=== PATIENT | female | born 1940 | race Caucasian/White ===

== ENCOUNTER 2016-06-15 09:20 | Emergency (ER) | payer MEDICARE, BC ==
[2016-06-15 10:04] LABS: Hematocrit 46.5 % (37.0-47.0); Mean Cell Volume 85.5 fl (78-100); Mean Corpuscular Hemoglobin 27.6 pg (27-31); Mean Corpuscular Hgb Conc 32.3 g/dl (32-36); Mean Platelet Volume 9.9 fl (6.0-9.5); Neutrophil # 7.9 K/mm3 (1.3-6.0); Neutrophil % 65.1 % (42-75.0); Platelet Count 379 K/mm3 (150-450); Red Blood Count 5.44 M/mm3 (4.2-5.4); Red Cell Distribution Width 14.6 % (11.5-14.0); White Blood Count 12.2 K/mm3 (4.0-10.5)
[2016-06-15 10:08] LABS: Urine Bilirubin Negative (NEGATIVE); Urine Blood Negative /ul (NEGATIVE); Urine Ketone Negative (NEGATIVE); Urine Nitrite Negative (NEGATIVE); Urine Protein Negative (NEGATIVE); Urine Specific Gravity >=1.030 SP.GR. (1.005-1.010); Urine Urobilinogen Normal (NORMAL)
[2016-06-15 10:16] LABS: Urine Appearance Clear; Urine Bacteria None Seen; Urine Color Yellow; Urine RBC None Seen /hpf (0-5); Urine WBC 0-5 /hpf (0-5)
[2016-06-15 10:19] LABS: Albumin * 3.4 gm/dl (3.4-5.0); Anion Gap 13.9 mmol/L (6.8-13.8); BUN/Creatinine Ratio 18.1 (9.0-21.6); Bilirubin, Total 0.6 mg/dL (0.0-1.1); Ca. Corrected For Albumin 9.4 mg/dL (8.4-10.2); Calcium * 9.2 mg/dL (7.9-10.9); Carbon Dioxide 25.5 mmol/L (24-32.6); Potassium 4.4 mmol/L (3.4-4.6); Total Protein 7.4 gm/dL (6.2-8.2)
[2016-06-15] MEDS ORDERED: DIATRIZOATE MEGLU/DIATRIZO SOD 30 ML BTL PO ONE (10:24)
[2016-06-15] MEDS ORDERED: DIATRIZOATE MEGLU/DIATRIZO SOD 30 ML BTL ONE (10:32)
[2016-06-15 13:02] VITALS: BP 142/87
--- NOTE | 2016-06-15 13:47 | ERNOTE ---
Abdominal HPI - Narrative Date of Service: 06/15/16 - General Chief Complaint: Abdominal Pain Time Seen by Provider: 06/15/16 09:44 Source: patient Exam Limitations: no limitations - Immun/Allergies/Home Medications Immunizatons: IMMUNIZATION HX Immunizations Up to Date Yes History of Influenza Vaccine Yes Hx Pneumococcal Vaccination Yes Allergies/Adverse Reactions: Allergies Penicillins Allergy (Severe, Verified 06/15/16 09:42) Anaphylaxis levofloxacin [From Levaquin] Allergy (Mild, Verified 06/15/16 09:42) Hives lidocaine Adverse Reaction (Intermediate, Verified 06/15/16 09:42) ELEVATED HEART RATE atorvastatin calcium [From Lipitor] Adverse Reaction (Mild, Verified 06/15/16 09 :42) LEG PAIN clarithromycin [From Biaxin] Adverse Reaction (Mild, Verified 06/15/16 09:42) UPSET STOMACH Sulfa (Sulfonamide Antibiotics) [Sulfa(Sulfonamide Antibiotics)] Adverse Reaction (Mild, Verified 06/15/16 09:42) Nausea Home Medications: HOME MEDICATIONS LORazepam [Ativan] 0.5 - 1 mg PO HS PRN 05/29/12 [Last Taken 10/22/14] Aspirin 325 tab PO DAILY 10/22/12 [Last Taken 10/22/14] Metoprolol Tartrate [Lopressor] 25 mg PO HS 10/22/12 [Last Taken 10/21/14] Metoprolol Tartrate [Lopressor] 50 mg PO QAM 10/22/12 [Last Taken 05/26/15 06:00 ] Lovastatin [Altoprev] 20 mg PO HS 02/10/15 [Last Taken Unknown] Omeprazole [Prilosec] 20 mg PO DAILY 02/14/15 [Last Taken Unknown] Albuterol Sulfate 2.5 mg IH Q6H PRN 04/23/15 [Last Taken Unknown] Albuterol Sulfate [Ventolin Hfa] 1 puff IH Q4H 04/23/15 [Last Taken Unknown] Fexofenadine/Pseudoephedrine [Katy-D 24 Hour Tablet] 1 each PO DAILY #30 tab.er.24h 11/22/15 [Last Taken Unknown] Fluticasone Propionate [Flovent Hfa] 2 puff IH BID #1 inhaler 11/22/15 [Last Taken Unknown] Doxycycline Hyclate [Morgidox] 100 mg PO BID #20 capsule 06/15/16 [Last Taken Unknown] - History of Present Illness Narrative: Patient presents for abdominal pain. This has been fresent for approx 2 weeks. Saw PCP and was started on ABx but pain continues. No fever or vomiting. Mid and left mid abdomen. Pain waxes and wanes but will come back daily. No vomiting. No dysuria. Nothing really seems to make it better or worse. Saw PCP and labs/ABx given. No CP or SOB. No abrupt worsening of the pain. Timing: other - fluctuating intensity Quality: moderate, aching Activities at Onset: none Modifying Factors - (Improves): Present: other - none Modifying Factors - (Worsens): Present: other - none Associated Symptoms: Absent: chest pain, diarrhea-gross blood, diarrhea-mucous, fever/chills, vomiting, shortness of breath Prior Abdominal Problems: Present: other - has Hx of diverticulttis Prior Treatment: Present: recently seen Review of Systems - Review of Systems Constitutional: Absent: fever Respiratory: Absent: shortness of breath Cardiology: Absent: chest pain Gastrointestinal/Abdominal: Present: See HPI Genitourinary: Absent: dysuria Musculoskeletal: Absent: back pain Skin: Absent: rash - Patient's Past Medical History Patient History - Medical: Anxiety, Cataracts, Depression, GERD, UTI'S, Other Patient History - Cardiac/Respiratory: Hypertension, Hyperlipidemia Patient History - Cancer: No Hx of Cancer Patient History - Surgical Procedures: Appendectomy, Cataracts, Cholecystectomy , Colonoscopy, EGD Patient History - Other: None - Family History Mother Family History - Medical: Family History - Cardiac/Respiratory: Coronary Heart Disease, Hypertension, Hyperlipidemia Father Family History - Medical: , Alzheimer's Disease Family History - Cardiac/Respiratory: No pertinent hx - Social History Living Situations: home Abuse History: No History of abuse Psych History: Hx of Anxiety, Hx of Depression, Current tx/ever been on anti- depressants or anti-anxiety meds Alcohol Use: none Drug Use: none - Immunizations Immunizations Up to Date: Yes Hx Pneumococcal Vaccination: Yes History of Influenza Vaccine: Yes Physical Exam - Physical Exam General Appearance: Present: alert, no apparent distress, other - Non-toxic, no distress. Sitting in the chair. Eye Exam: Normal inspection: bilateral, PERRL: bilateral Ears, Nose, Throat: Present: normal ENT inspection Neck: Present: normal inspection Respiratory: Present: no respiratory distress, normal breath sounds, no accessory muscle use, lungs clear Cardiovascular/Chest: Present: regular rate, rhythm Gastrointestinal/Abdominal: Present: normal bowel sounds, nondistended, soft, no organomegaly, other - Mild tenderness left mid abdomen. No guarding or rebound. No peritoneal signs.. Non-surgical exam. 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 - Vital Signs Patient's Vital Signs:: I have reviewed the patient's vital signs. Vital Signs: Vital Signs 06/15/16 06/15/16 06/15/16 09:36 10:47 11:45 Temperature 36.4 C L Pulse Rate 73 74 86 Respiratory 12 12 12 Rate Blood Pressure 130/63 128/84 132/80 O2 Sat by Pulse 92 96 94 Oximetry 06/15/16 12:50 Temperature Pulse Rate 87 Respiratory 12 Rate Blood Pressure 142/87 O2 Sat by Pulse 97 Oximetry - CT/Ultrasound CT/Ultrasound Narrative: Diverticulitis. I reviewed official CT report - Progress/Reassessment Chief Complaint: Abdominal Pain Progress Note-Subjective: 06/15/16 13:43 Patient with multiple allergies and on ABx. Will add doxycycline as she is not allergic. No indication at this point for admission. By CT uncomplicated diverticulitis. No abscess. Well hydrated, non-surgical exam. She feels like going home. I discussed warning signs and reasons to return as well as the need for close f/u. Departure - Departure Clinical Impression: Diverticulitis Disposition: Home self-care Condition: Stable Instructions: Diverticulitis, [id number] Additional Instructions: Follow-up with your primary doctor within 3 days for a re-check. Doxycycline. [place] diet next 3 days. Return for fever, vomiting, increased pain or if your condition worsens or changes in any way. Referrals: Chana Hunt MD [Primary Care Provider] - Prescriptions: Doxycycline Hyclate [Morgidox] 100 mg PO BID #20 capsule
== END 2016-06-15 13:53 | disposition home or self-care (01) ==
LOC: ER 09:20
DX: K57.92 Diverticulitis of intestine, part unspecified, without perforation or abscess without bleeding (principal); Z87.440 Personal history of urinary (tract) infections; K21.9 Gastro-esophageal reflux disease without esophagitis; I10 Essential (primary) hypertension; E78.5 Hyperlipidemia, unspecified; F41.9 Anxiety disorder, unspecified

== ENCOUNTER 2016-08-07 09:53 | Observation (INO) | payer MEDICARE, BC ==
[2016-08-07] MEDS ORDERED: NITROGLYCERIN 0.4 MG/TAB BTL SL PRN ×2 (09:59→14:52)
--- NOTE | 2016-08-07 10:10 | ERNOTE ---
Chest Pain/Cardiac HPI Date of Service: 08/07/16 Time Seen by Provider: 08/07/16 09:55 Source: patient Exam Limitations: no limitations Immunizations: IMMUNIZATION HX Immunizations Up to Date Yes History of Influenza Vaccine Yes Hx Pneumococcal Vaccination Yes Allergies/Adverse Reactions: Allergies Penicillins Allergy (Severe, Verified 06/15/16 09:42) Anaphylaxis levofloxacin [From Levaquin] Allergy (Mild, Verified 06/15/16 09:42) Hives lidocaine Adverse Reaction (Intermediate, Verified 06/15/16 09:42) ELEVATED HEART RATE atorvastatin calcium [From Lipitor] Adverse Reaction (Mild, Verified 06/15/16 09 :42) LEG PAIN clarithromycin [From Biaxin] Adverse Reaction (Mild, Verified 06/15/16 09:42) UPSET STOMACH Sulfa (Sulfonamide Antibiotics) [Sulfa(Sulfonamide Antibiotics)] Adverse Reaction (Mild, Verified 06/15/16 09:42) Nausea Home Medications: HOME MEDICATIONS LORazepam [Ativan] 0.5 - 1 mg PO HS PRN 05/29/12 [Last Taken 10/22/14] Aspirin 325 tab PO DAILY 10/22/12 [Last Taken 10/22/14] Metoprolol Tartrate [Lopressor] 25 mg PO HS 10/22/12 [Last Taken 10/21/14] Metoprolol Tartrate [Lopressor] 50 mg PO QAM 10/22/12 [Last Taken 05/26/15 06:00 ] Lovastatin [Altoprev] 20 mg PO HS 02/10/15 [Last Taken Unknown] Omeprazole [Prilosec] 20 mg PO DAILY 02/14/15 [Last Taken Unknown] Albuterol Sulfate 2.5 mg IH Q6H PRN 04/23/15 [Last Taken Unknown] Albuterol Sulfate [Ventolin Hfa] 1 puff IH Q4H 04/23/15 [Last Taken Unknown] Fluticasone Propionate [Flovent Hfa] 2 puff IH BID #1 inhaler 11/22/15 [Last Taken Unknown] Narrative: Pt. comes in with c/o mid sternal chest pain that radiates to both of her shoulders since 7pm last night. Pt. is unable to put a number on her pain as she states it is more of a pressure than a pain and nothing improves or exacerbates the pain. Pt. states that she has some mild SOB with this and has had a recent bronchitis. Pt. also has a hx of a stent to an unknown coronary artery in 1998 and has HTN. Pt. denies any fevers, NVD, lightheadedness, or palpitations. Pt. has a hx of R leg pedal edema which pt. denies any change in. Review of Systems - Review of Systems Constitutional: Present: no symptoms reported. Absent: fever, chills, weakness , fatigue, malaise EYE: Present: no symptoms reported ENT: Absent: ear discharge, nose pain, nose congestion, nasal drainage, sore throat Respiratory: Present: shortness of breath, cough. Absent: orthopnea, wheezing, stridor Cardiology: Present: chest pain, edema. Absent: palpitations Gastrointestinal/Abdominal: Present: no symptoms reported. Absent: vomiting, diarrhea, abdominal pain Genitourinary: Present: no symptoms reported Musculoskeletal: Present: no symptoms reported. Absent: back pain, joint pain Skin: Present: no symptoms reported Neurological: Present: no symptoms reported. Absent: headache, dizziness/light- headedness, numbness, tingling Endocrine: Present: no symptoms reported Hematologic/Lymphatic: Present: no symptoms reported Psych: Present: no symptoms reported All Other Systems: All systems neg except as marked - Patient's Past Medical History Patient History - Medical: Anxiety, Cataracts, Depression, GERD, UTI'S Patient History - Cardiac/Respiratory: Hypertension, Hyperlipidemia Patient History - Cancer: No Hx of Cancer Patient History - Surgical Procedures: Appendectomy, Cataracts, Cholecystectomy , Colonoscopy, EGD Patient History - Other: None - Family History Mother Family History - Medical: Family History - Cardiac/Respiratory: Coronary Heart Disease, Hypertension, Hyperlipidemia Father Family History - Medical: , Alzheimer's Disease Family History - Cardiac/Respiratory: No pertinent hx - Social History Living Situations: home Abuse History: No History of abuse Psych History: Hx of Anxiety, Hx of Depression, Current tx/ever been on anti- depressants or anti-anxiety meds Alcohol Use: none Drug Use: none - Immunizations Immunizations Up to Date: Yes Hx Pneumococcal Vaccination: Yes History of Influenza Vaccine: Yes Physical Exam - Physical Exam General Appearance: Present: wd/wn, alert, no apparent distress Eye Exam: Normal inspection: bilateral, PERRL: bilateral, EOMI: bilateral Ears, Nose, Throat: Present: normal ENT inspection, normal pharynx Neck: Present: normal inspection, nontender. Absent: lymphadenopathy (R), lymphadenopathy (L) Respiratory: Present: no respiratory distress, normal breath sounds, no accessory muscle use, chest nontender, lungs clear Cardiovascular/Chest: Present: regular rate, rhythm, no murmur, normal peripheral pulses Gastrointestinal/Abdominal: Present: normal bowel sounds, nontender, nondistended, soft, no organomegaly Back Exam: Present: normal inspection, normal range of motion, no CVA tenderness , no vertebral tenderness Extremity Exam: Present: normal inspection, non-tender, normal range of motion, no edema Neurological Exam: Present: alert, oriented, normal mood/affect, no motor/ sensory deficits, 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 Absent: pallor, skin rash ED Progress - Date and Time Seen: Date and Time: 08/07/16 13:[address] Joselito Call and he accepts admit for observation to rule out CT - Results and Orders Patient's Lab Results:: I have reviewed the patient's lab results. - Vital Signs Patient's Vital Signs:: I have reviewed the patient's vital signs. - EKG EKG: NSR, unchanged from - previous, other - inferior changes EKG read: Reviewed by me EKG Comments: interpreted by Dr shannon no acute changes - X-Ray X-Ray #1 X-Ray: chest Interpretation: Interp. by me X-ray Comments: elevated R hemidiaphragm, LLL atelactasis and consolidation at the costalphrenic angle, - CT/Ultrasound CT/Ultrasound Narrative: CT chest with multiple nodules and dependent atelactasis. Departure - Departure Clinical Impression: Chest pain Qualifiers: Chest pain type: unspecified Qualified Code(s): R07.9 - Chest pain, unspecified Acute bronchitis Qualifiers: Bronchitis organism: unspecified organism Qualified Code(s): J20.9 - Acute bronchitis, unspecified Disposition: [facility] Condition: Fair Referrals: Chana Hunt MD [Primary Care Provider] -
[2016-08-07 10:13] LABS: Hematocrit 44.2 % (37.0-47.0); Hemoglobin 14.4 gm/dL (12.5-16.0); Mean Cell Volume 84.5 fl (78-100); Mean Corpuscular Hemoglobin 27.5 pg (27-31); Mean Corpuscular Hgb Conc 32.6 g/dl (32-36); Mean Platelet Volume 9.7 fl (6.0-9.5); Neutrophil # 5.5 K/mm3 (1.3-6.0); Neutrophil % 59.1 % (42-75.0); Platelet Count 322 K/mm3 (150-450); Red Blood Count 5.23 M/mm3 (4.2-5.4); White Blood Count 9.4 K/mm3 (4.0-10.5)
--- OUTSIDE RECORDS SUMMARY | 2016-08-07 10:19 | XMS REPORT | Continuity of Care Document ---
:1940 Author Organization [facility] ([facility]) Address [place] [address] Phone [phone] Care Team Providers Name Role Phone Chana Hunt Primary Care Provider [phone] Source Comments This disclosure is being made pursuant to the Care Everywhere program, applicable federal and state laws, and may not contain all informaitonavailable regarding this patient.[facility] ([facility]) Active Allergies and Adverse Reactions Allergen Noted Date Severity Reactions Comments Atorvastatin 09/13/2011 OTHER Leg pain Clarithromycin 09/13/2011 Stomach Pain Levofloxacin 09/13/2011 Urticaria (Hives) Lidocaine 09/13/2011 Tachycardia Penicillin G 09/13/2011 Anaphylaxis Sulfa (Sulfonamide Antibiotics) 09/13/2011 Nausea & Vomiting Current Medications Prescription Sig. Disp. Refills Start Date End Date Status aspirin 325 mg tablet Take 325 mg by mouth Active daily. metoPROLol (LOPRESSOR) Take 50 mg by mouth 2 Active 50 mg tablet times daily. Take 50mg Q AM and 25mg Q PM. LORazepam 0.5 mg tablet Take 0.5 mg by mouth Active every 6 hours as needed. Omeprazole 20 mg TbEC Take 20 mg by mouth Active daily. simvastatin 20 mg Take 20 mg by mouth Active tablet every evening. estrogens, conjugated insert 0.5 g 30 g 11 12/09/2011 Active (PREMARIN) 0.625 vaginally every week. mg/gram vaginal cream Indications: ATROPHIC VAGINITIS ASSOCIATED WITH MENOPAUSE Active Problems Problem Noted Date Recurrent UTI 09/17/2011 HTN (hypertension) 09/17/2011 CAD (coronary artery disease) 09/17/2011 Overview: Hx of 1 vessel stent Social History Tobacco Use Types Packs/Day Years Used Date Never Smoker Smokeless Tobacco: Never Used Alcohol Use Drinks/Week oz/Week Comments No Last Filed Vital Signs Vital Sign Reading Time Taken Blood Pressure 138/78 03/06/2013 10:34 AM CDT Pulse 65 03/06/2013 10:34 AM CDT Temperature 36.6 C (97.9 F) 03/06/2013 10:34 AM CDT Respiratory Rate 18 02/09/2012 2:46 PM CDT Height 1.626 m (5' 4.02") 03/06/2013 10:34 AM CDT Weight 83.099 kg (183 lb 3.2 oz) 03/06/2013 10:34 AM CDT Body Mass Index 31.43 03/06/2013 10:34 AM CDT Oxygen Saturation 94% 02/09/2012 2:46 PM CDT Plan of Care Health Maintenance Due Date Last Done Comments Hepatitis B Vaccine (1 of 3 - Primary Series) 1940 Tdap Vaccine 1952 Lipid Disorder Screening 1959 Td Vaccine 1959 Mammogram 1981 Colonoscopy 1991 Zoster Vaccine 2001 Osteoporosis Screening (DXA Bone Density) 2006 Pneumococcal Vaccine (1 of 2 - PCV13) 2006 Influenza Vaccine: Seasonal (#1) 12/08/2015 Results from Last 3 Months Not on file
[2016-08-07 10:34] LABS: ALT 29 U/L (19-67); AST 29 U/L (0-48); Albumin * 3.3 gm/dl (3.4-5.0); Alkaline Phosphatase * 46 U/L (50-170); Anion Gap 12.3 mmol/L (6.8-13.8); BUN/Creatinine Ratio 19.2 (9.0-21.6); Bilirubin, Total 0.7 mg/dL (0.0-1.1); Blood Urea Nitrogen 15 mg/dL (3-23); Ca. Corrected For Albumin 9.2 mg/dL (8.4-10.2); Carbon Dioxide 28.7 mmol/L (24-32.6); Chloride 105 mmol/L (97-106); Glucose * 94 mg/dL (70-110); Sodium 142 mmol/L (132-142); Troponin I Less than 0.017 ng/ml (0.00-0.10)
[2016-08-07 10:37] LABS: Prothrombin Time (Patient) 10.5 Seconds (9.4-11.4)
[2016-08-07 10:39] LABS: INR 1.01 INR (0.90-1.10); Partial Thrombolplastin Time 25.4 Seconds (24-32)
[2016-08-07] MEDS ORDERED: LORazepam 1 MG TABLET PO PRN (14:42)
[2016-08-07] MEDS ORDERED: ALBUTEROL SULFATE 2.5 MG/3 ML VIAL.NEB IH PRN (14:42)
--- NOTE | 2016-08-07 15:01 | HP ---
Chief Complaint - Chief Complaint Date of Service: 08/07/16 Time of Service: 14:44 Chief Complaint: chest pressure History of Present Illness: 76 yo WF, pt. of Dr. Hunt's, with PMH CAD (s/p stent 1998), hyperlipidemia, HTN and GERD has been feeling more fatigued over the last week and last night began having a substernal chest pressure with radiation into neck and both shoulders. She didn't move around a lot, but didn't notice any increase of sx with movement. She thought it might be her stomach so took an antacid without relief. Finally took an old nitro and lorazepam which gave her some relief and she went to sleep, but woke again this am with the CP recurring. She denied N/V /diaphoresis with it, but did have some fatigue and SOB. She presented to the ER where nitro was given, which diminished but didn't relieve her sx. EKG and first set of cardiac enzymes were negative, but given her risk factors, felt it best to at least observe her overnight and rule out possible AMI/ACS. She still complains of some discomfort at the time I saw her, though she doesn' t look to be in any terrible distress or anxious appearing. She does have some KARRI and sternal - costochondral pain on palpation, but she said both of these were not the same as the discomfort she is having. - Patient's Past Medical History Patient History - Medical: Anxiety, Cataracts, Depression, GERD, UTI'S Patient History - Cardiac/Respiratory: Coronary Heart Disease - s/p stent placement in 1998, single vessel per her, Hypertension, Hyperlipidemia Patient History - Cancer: No Hx of Cancer Patient History - Surgical Procedures: Appendectomy, Cataracts, Cholecystectomy , Colonoscopy, Cardiac stent, EGD Patient History - Other: None - Family History Mother Family History - Medical: Family History - Cardiac/Respiratory: Coronary Heart Disease, Hypertension, Hyperlipidemia Father Family History - Medical: , Alzheimer's Disease Family History - Cardiac/Respiratory: No pertinent hx - Social History Living Situations: home Abuse History: No History of abuse Psych History: Hx of Anxiety, Hx of Depression, Current tx/ever been on anti- depressants or anti-anxiety meds Smoking Status: Never smoker Do you dip or chew tobacco: No Alcohol Use: none Drug Use: none - Immunizations Immunizations Up to Date: Yes Hx Pneumococcal Vaccination: Yes History of Influenza Vaccine: Yes Review Of Systems (GEN) - Review of Systems Generalized/Overall Review: Present: Weakness, Fatigue. Absent: Chills, Fever EENTM: Present: No Symptoms Reported Respiratory: Present: Shortness of Breath. Absent: Cough, Wheezing Cardiac: Present: Chest Pain. Absent: Palpitations Abdominal: Present: Nausea. Absent: Vomiting, Abdominal Pain, Constipation, Diarrhea Genitourinary: Present: No Symptoms Reported Musculoskeletal: Present: No Symptoms Reported Neurological: Present: No Symptoms Reported Skin: Present: No Symptoms Reported Endocrine: Present: No Symptoms Reported Allergies/Adverse Reactions: Allergies Allergy/AdvReac Type Severity Reaction Status Date / Time Penicillins Allergy Severe Anaphylaxis Verified 06/15/16 09:42 levofloxacin [From Levaquin] Allergy Mild Hives Verified 06/15/16 09:42 lidocaine AdvReac Intermediate ELEVATED Verified 06/15/16 09:42 HEART RATE atorvastatin calcium AdvReac Mild LEG PAIN Verified 06/15/16 09:42 [From Lipitor] clarithromycin [From Biaxin] AdvReac Mild UPSET Verified 06/15/16 09:42 STOMACH Sulfa (Sulfonamide AdvReac Mild Nausea Verified 06/15/16 09:42 Antibiotics) [Sulfa(Sulfonamide Antibiotics)] Home Medications: HOME MEDICATIONS LORazepam [Ativan] 0.5 - 1 mg PO HS PRN 05/29/12 [Last Taken 10/22/14] Aspirin 325 tab PO DAILY 10/22/12 [Last Taken 10/22/14] Metoprolol Tartrate [Lopressor] 25 mg PO HS 10/22/12 [Last Taken 10/21/14] Metoprolol Tartrate [Lopressor] 50 mg PO QAM 10/22/12 [Last Taken 05/26/15 06:00 ] Lovastatin [Altoprev] 20 mg PO HS 02/10/15 [Last Taken Unknown] Omeprazole [Prilosec] 20 mg PO DAILY 02/14/15 [Last Taken Unknown] Albuterol Sulfate 2.5 mg IH Q6H PRN 04/23/15 [Last Taken Unknown] Albuterol Sulfate [Ventolin Hfa] 1 puff IH Q4H 04/23/15 [Last Taken Unknown] Fluticasone Propionate [Flovent Hfa] 2 puff IH BID #1 inhaler 11/22/15 [Last Taken Unknown] Exam - Exam Vital Signs: Vital Signs - Last Taken Temp 36.9 C 08/07/16 09:56 Pulse 77 08/07/16 14:10 Resp 15 08/07/16 14:09 BP 144/68 08/07/16 14:09 Pulse Ox 95 08/07/16 14:09 Constitutional: Present: Alert, Oriented x3, Cooperative, Mild distress ENT Exam: Present: hearing grossly normal Eye Exam: bilateral eye: normal inspection, PERRL, EOMI Neck: Present: supple Back Exam: Present: normal inspection Breasts: Present: Exam deferred Respiratory: Present: lungs clear, normal breath sounds, no respiratory distress , no accessory muscle use, other - sternal border tender to palpation. Cardiovascular/Chest: Present: regular rate, rhythm, no murmur Abdomen: Present: Normal bowel sounds, soft, nondistended, no rebound tenderness , no hepatospenomegaly, tender - mild KARRI pain with deep palpation. Absent: guarding, rigidity /Rectal: Present: Exam deferred Extremity: Present: no calf tenderness. Absent: lower extremity edema Skin Exam: Present: normal color Neurologic: Present: normal mood/affect, oriented x 3 Appearance: Present: appropriate appearance, appropriate insight, neat, no memory impairment Eye contact: Present: cooperative, good eye contact, normal speech Thoughts: Present: normal thought pattern, no apparent hallucination Diagnostic Studies: Laboratory Results WBC 9.4 K/mm3 (4.0-10.5) 08/07/16 10:05 RBC 5.23 M/mm3 (4.2-5.4) 08/07/16 10:05 Hgb 14.4 gm/dL (12.5-16.0) 08/07/16 10:05 Hct 44.2 % (37.0-47.0) 08/07/16 10:05 MCV 84.5 fl (78-100) 08/07/16 10:05 MCH 27.5 pg (27-31) 08/07/16 10:05 MCHC 32.6 g/dl (32-36) 08/07/16 10:05 RDW 14.0 % (11.5-14.0) 08/07/16 10:05 Plt Count 322 K/mm3 (150-450) 08/07/16 10:05 MPV 9.7 fl (6.0-9.5) H 08/07/16 10:05 Immature Gran % (Auto) 0.50 % (0.001-0.429) H 08/07/16 10:05 Immature Gran # (Auto) 0.05 K/mm3 (0.000-0.0310) H 08/07/16 10:05 Neutrophils % 59.1 % (42-75.0) 08/07/16 10:05 Lymphocytes % 26.5 % (20-51) 08/07/16 10:05 Monocytes % 8.0 % (0.0-9) 08/07/16 10:05 Eosinophils % 4.6 % (0.0-3.0) H 08/07/16 10:05 Basophils % 1.3 % (0.0-1.0) H 08/07/16 10:05 Nucleated RBC % 0.0 k/mm3 (0-1) 08/07/16 10:05 Neutrophils # 5.5 K/mm3 (1.3-6.0) 08/07/16 10:05 Lymphocytes # 2.5 k/mm3 (1.5-3.5) 08/07/16 10:05 Monocytes # 0.8 k/mm3 (0.0-1.0) 08/07/16 10:05 Eosinophils # 0.4 k/mm3 (0.0-0.7) 08/07/16 10:05 Absolute Basophils 0.1 k/mm3 (0.0-0.1) 08/07/16 10:05 PT 10.5 Seconds (9.4-11.4) 08/07/16 10:05 INR (Anticoag Therapy) 1.01 INR (0.90-1.10) 08/07/16 10:05 PTT (Herbert) 25.4 Seconds (24-32) 08/07/16 10:05 D-Dimer 1.32 mg/L (0.19-0.49) H 08/07/16 10:05 Sodium 142 mmol/L (132-142) 08/07/16 10:05 Plasma Sodium 142 mmol/L (130-142) 08/07/16 10:05 Potassium 4.0 mmol/L (3.4-4.6) 08/07/16 10:05 Chloride 105 mmol/L (97-106) 08/07/16 10:05 Carbon Dioxide 28.7 mmol/L (24-32.6) 08/07/16 10:05 Anion Gap 12.3 mmol/L (6.8-13.8) 08/07/16 10:05 BUN 15 mg/dL (3-23) 08/07/16 10:05 Creatinine 0.78 mg/dL (0.4-1.4) 08/07/16 10:05 Est GFR (Non-Af Amer) 77 mL/min (60-130) 08/07/16 10:05 BUN/Creatinine Ratio 19.2 (9.0-21.6) 08/07/16 10:05 Random Glucose 94 mg/dL (70-110) 08/07/16 10:05 Calcium 9.0 mg/dL (7.9-10.9) 08/07/16 10:05 Calcium Adj for Albumin 9.2 mg/dL (8.4-10.2) 08/07/16 10:05 Total Bilirubin 0.7 mg/dL (0.0-1.1) 08/07/16 10:05 AST 29 U/L (0-48) 08/07/16 10:05 ALT 29 U/L (19-67) 08/07/16 10:05 Alkaline Phosphatase 46 U/L (50-170) L 08/07/16 10:05 Troponin I Less than 0.017 ng/ml (0.00-0.10) 08/07/16 10:05 Total Protein 7.0 gm/dL (6.2-8.2) 08/07/16 10:05 Albumin 3.3 gm/dl (3.4-5.0) L 08/07/16 10:05 Assessment/Plan - Assessment/Plan (1) HTN (hypertension) Assessment: BP's are elevated, which is somewhat concerning with her CP for possible CAD/ angina. consider low dose lisinopril 2.5mg - 5mg if it remains elevated. Will follow for now. continue her metoprolol for now Problem: Acute (2) GERD (gastroesophageal reflux disease) Assessment: continue omeprazole unchanged. consider tums, gi cocktail if sx. Problem: Acute (3) Hyperlipemia Assessment: continue chl med unchanged for now Problem: Acute (4) Asthma Assessment: continue meds unchanged as appears stable at this time and I don't believe is related to her sx. Problem: Acute (5) Discharge planning issues Assessment: will monitor sx. if labs and tests are negative will discharge in am, with PCP workup for CP to include possible cardiology referral or outpt stress test. Problem: Acute (6) Chest pain Assessment: has several risk factors for this being cardiac in nature. If sx persist, consider checking amylas and lipase to rule out pancreatic source. PE was already ruled out and I assume that this gives a good look at thoracic aorta as well for possible aneurysm causing sx. Problem: Acute Qualifiers: Chest pain type: unspecified Qualified Code(s): R07.9 - Chest pain, unspecified
[2016-08-07 15:30] LABS: Amylase * 59 U/L (25-115); Lipase 361 U/L (73-393)
[2016-08-07] MEDS: ALBUTEROL SULFATE 2.5 MG/3 ML VIAL.NEB IH SCH ×3 (16:26→23:08)
[2016-08-07] MEDS: BUDESONIDE 0.5 MG/2 ML VIAL.NEB IH SCH (18:11)
[2016-08-07] MEDS ORDERED: SIMVASTATIN 10 MG TABLET PO SCH (21:00)
[2016-08-07] MEDS ORDERED: METOPROLOL TARTRATE 25 MG TABLET PO SCH (21:00)
[2016-08-07] MEDS ORDERED: CALCIUM CARBONATE 500 MG TAB.CHEW PO PRN (21:06)
[2016-08-08] MEDS: ALBUTEROL SULFATE 2.5 MG/3 ML VIAL.NEB IH SCH ×2 (02:42→06:07)
[2016-08-08] MEDS: BUDESONIDE 0.5 MG/2 ML VIAL.NEB IH SCH (06:09)
[2016-08-08] MEDS ORDERED: PANTOPRAZOLE SODIUM 20 MG TABLET.DR PO SCH (07:00)
[2016-08-08 07:08] VITALS: BP 120/55
--- NOTE | 2016-08-08 08:48 | DS ---
(1) HTN (hypertension) Problem: Acute (2) GERD (gastroesophageal reflux disease) Problem: Acute (3) Hyperlipemia Problem: Acute (4) Asthma Problem: Acute (5) Discharge planning issues Problem: Acute (6) Chest pain Problem: Acute Qualifiers: Chest pain type: unspecified Qualified Code(s): R07.9 - Chest pain, unspecified Description of Stay: Pt. had serial enzymes done which were negative for AMI or ACS. No EKG changes of concern. Pt. still had some chest pressure, especially after eating and developed a slight cough, though her lung exam remained unremarkable. Still, believe her CP may be more related to GERD or asthma/bronchitis so will do a zpak and prednisone taper at time of discharge (she states she has taken this and it works well for her), prn tums for the stomach. No other med changes done. She was given an Rx for nitroglycerin as her's was old. Her BP's initially were high but were in the 120's at time of D/C so no med changes were made, though consideration for adding low dose lisinopril was considered. Procedures Performed: none Discharge Disposition: Home self care Disposition: Home self-care Condition: Good Discharge Activity: Activity as tolerated Discharge Diet: General/regular food Referrals: Chana Hunt MD [Primary Care Provider] - One Week Prescriptions (Any new or edited meds): Azithromycin 250 mg PO DAILY #6 tablet Nitroglycerin [Nitrostat] 0.4 mg SL Q5MIN PRN #20 btl PRN Reason: Chest Pain predniSONE [Prednisone] 10 mg PO DAILY #21 tab.ds.pk Complete Home Medications List: Complete Home Medication List: LORazepam [Ativan] 0.5 - 1 mg PO HS PRN 05/29/12 Aspirin 325 tab PO DAILY 10/22/12 Metoprolol Tartrate [Lopressor] 25 mg PO HS 10/22/12 Metoprolol Tartrate [Lopressor] 50 mg PO QAM 10/22/12 Lovastatin [Altoprev] 20 mg PO HS 02/10/15 Omeprazole [Prilosec] 20 mg PO DAILY 02/14/15 Albuterol Sulfate 2.5 mg IH Q6H PRN 04/23/15 Albuterol Sulfate [Ventolin Hfa] 1 puff IH Q4H PRN 04/23/15 Fluticasone Propionate [Flovent Hfa] 2 puff IH BID #1 inhaler 11/22/15 Azithromycin 250 mg PO DAILY #6 tablet 08/08/16 Calcium Carbonate [Tums] 500 mg PO QID PRN #0 tab.chew 08/08/16 Nitroglycerin [Nitrostat] 0.4 mg SL Q5MIN PRN #20 btl 08/08/16 predniSONE [Prednisone] 10 mg PO DAILY #21 tab.ds.pk 08/08/16
[2016-08-08] MEDS ORDERED: ASPIRIN 325 MG TABLET.DR PO SCH (09:00)
[2016-08-08] MEDS ORDERED: METOPROLOL TARTRATE 50 MG TABLET PO SCH (09:00)
== END 2016-08-08 09:49 | disposition home or self-care (01) ==
LOC: ER 09:53 → MS 13:07
PROVIDERS: ADMIT Family Medicine; ATTEND Family Medicine
DX: R07.9 Chest pain, unspecified (principal); I10 Essential (primary) hypertension; K21.9 Gastro-esophageal reflux disease without esophagitis; J45.909 Unspecified asthma, uncomplicated; E78.5 Hyperlipidemia, unspecified; I25.10 Atherosclerotic heart disease of native coronary artery without angina pectoris
CPT/HCPCS: 36415; 71020; 71275; 80053; 82150; 83690; 84484; 85025; 85379; 85610; 85730; 87081; 93005; 94640; 99284; G0378

== ENCOUNTER 2016-08-18 09:00 | Emergency (ER) | payer MEDICARE, BC ==
--- OUTSIDE RECORDS SUMMARY | 2016-08-18 09:23 | XMS REPORT | Continuity of Care Document ---
:1940 Author Organization [facility] ([facility]) Address [place] [address] Phone [phone] Care Team Providers Name Role Phone Chana Hunt Primary Care Provider [phone] Source Comments This disclosure is being made pursuant to the Care Everywhere program, applicable federal and state laws, and may not contain all informaitonavailable regarding this patient.[facility] ([facility]) Active Allergies and Adverse Reactions Allergen Noted [...]
[2016-08-18 09:35] LABS: Hematocrit 45.4 % (37.0-47.0); Hemoglobin 14.8 gm/dL (12.5-16.0); Mean Corpuscular Hgb Conc 32.6 g/dl (32-36); Mean Platelet Volume 9.6 fl (6.0-9.5); Neutrophil # 8.6 K/mm3 (1.3-6.0); Neutrophil % 69.2 % (42-75.0); Platelet Count 356 K/mm3 (150-450); Red Blood Count 5.28 M/mm3 (4.2-5.4); Red Cell Distribution Width 14.4 % (11.5-14.0); White Blood Count 12.5 K/mm3 (4.0-10.5)
[2016-08-18 09:46] LABS: Albumin * 3.2 gm/dl (3.4-5.0); Anion Gap 12.6 mmol/L (6.8-13.8); BUN/Creatinine Ratio 13.9 (9.0-21.6); Ca. Corrected For Albumin 8.8 mg/dL (8.4-10.2); Calcium * 8.5 mg/dL (7.9-10.9); Carbon Dioxide 27.4 mmol/L (24-32.6); Total Protein 6.9 gm/dL (6.2-8.2)
[2016-08-18] MEDS ORDERED: DIATRIZOATE MEGLU/DIATRIZO SOD 30 ML BTL PO ONE (10:00)
[2016-08-18 10:06] LABS: Urine Bilirubin Negative (NEGATIVE); Urine Blood Negative /ul (NEGATIVE); Urine Ketone Negative (NEGATIVE); Urine Protein Negative (NEGATIVE); Urine Urobilinogen Normal (NORMAL); Urine pH 6.5 pH (5.0-7.0)
[2016-08-18] MEDS ORDERED: DIATRIZOATE MEGLU/DIATRIZO SOD 30 ML BTL ONE (10:06)
[2016-08-18 10:12] LABS: Urine Appearance Slightly Cloudy; Urine Bacteria 3+; Urine Color Dark Yellow; Urine Nitrite Positive (NEGATIVE); Urine RBC None Seen /hpf (0-5)
[2016-08-18 12:51] VITALS: BP 176/95
--- NOTE | 2016-08-18 13:07 | ERNOTE ---
Abdominal HPI - General Chief Complaint: Abdominal Pain Time Seen by Provider: 08/18/16 09:14 Source: patient - Immun/Allergies/Home Medications Immunizatons: IMMUNIZATION HX Immunizations Up to Date Yes History of Influenza Vaccine Yes Hx Pneumococcal Vaccination Yes Allergies/Adverse Reactions: Allergies Penicillins Allergy (Severe, Verified 08/18/16 09:11) Anaphylaxis levofloxacin [From Levaquin] Allergy (Mild, Verified 08/18/16 09:11) Hives lidocaine Adverse Reaction (Intermediate, Verified 08/18/16 09:11) ELEVATED HEART RATE atorvastatin calcium [From Lipitor] Adverse Reaction (Mild, Verified 08/18/16 09 :11) LEG PAIN clarithromycin [From Biaxin] Adverse Reaction (Mild, Verified 08/18/16 09:11) UPSET STOMACH Sulfa (Sulfonamide Antibiotics) [Sulfa(Sulfonamide Antibiotics)] Adverse Reaction (Mild, Verified 08/18/16 09:11) Nausea Home Medications: HOME MEDICATIONS LORazepam [Ativan] 0.5 - 1 mg PO HS PRN 05/29/12 [Last Taken 10/22/14] Aspirin 325 tab PO DAILY 10/22/12 [Last Taken 10/22/14] Metoprolol Tartrate [Lopressor] 25 mg PO HS 10/22/12 [Last Taken 10/21/14] Metoprolol Tartrate [Lopressor] 50 mg PO QAM 10/22/12 [Last Taken 05/26/15 06:00 ] Lovastatin [Altoprev] 20 mg PO HS 02/10/15 [Last Taken Unknown] Omeprazole [Prilosec] 20 mg PO DAILY 02/14/15 [Last Taken Unknown] Albuterol Sulfate 2.5 mg IH Q6H PRN 04/23/15 [Last Taken Unknown] Albuterol Sulfate [Ventolin Hfa] 1 puff IH Q4H PRN 04/23/15 [Last Taken Unknown] Fluticasone Propionate [Flovent Hfa] 2 puff IH BID #1 inhaler 11/22/15 [Last Taken Unknown] Calcium Carbonate [Tums] 500 mg PO QID PRN #0 tab.chew 08/08/16 [Last Taken Unknown] Nitroglycerin [Nitrostat] 0.4 mg SL Q5MIN PRN #20 btl 08/08/16 [Last Taken Unknown] HYDROcodone/ACETAMINOPHEN [[place] 5-325] 1 each PO Q4H #20 tablet 08/18/16 [Last Taken Unknown] Sulfamethoxazole/Trimethoprim [Bactrim Ds] 1 tab PO BID #20 tab 08/18/16 [Last Taken Unknown] metroNIDAZOLE [Flagyl] 500 mg PO Q8H #30 tablet 08/18/16 [Last Taken Unknown] - History of Present Illness Narrative: Patient presents with left-sided and left lower quadrant abdominal pain. She describes the pain as moderate in intensity and appears to be recurrent from what she describes as diverticulitis that she's had in the past. She feels constipated as well however. Patient does not feel that she is having any fevers at home and also denies any diarrhea. Timing: constant Quality: moderate Activities at Onset: none Associated Symptoms: Present: other - constipation Prior Abdominal Problems: Present: similar symptoms, other - diverticulitis Prior Treatment: Present: recently seen, treated by physician Review of Systems - Review of Systems Constitutional: Present: See HPI EYE: Present: no symptoms reported ENT: Present: no symptoms reported Respiratory: Present: no symptoms reported Cardiology: Present: no symptoms reported Gastrointestinal/Abdominal: Present: See HPI, abdominal pain Genitourinary: Present: no symptoms reported Musculoskeletal: Present: no symptoms reported Skin: Present: no symptoms reported Neurological: Present: no symptoms reported Endocrine: Present: no symptoms reported Hematologic/Lymphatic: Present: no symptoms reported Psych: Present: no symptoms reported - Patient's Past Medical History Patient History - Medical: Anxiety, Cataracts, Depression, GERD, UTI'S, Other - diverticulitis Patient History - Cardiac/Respiratory: Coronary Heart Disease, Hypertension, Hyperlipidemia Patient History - Cancer: No Hx of Cancer Patient History - Surgical Procedures: Appendectomy, Cataracts, Cholecystectomy , Colonoscopy, Cardiac stent, EGD Patient History - Other: None - Family History Mother Family History - Medical: Family History - Cardiac/Respiratory: Coronary Heart Disease, Hypertension, Hyperlipidemia Family History - Cancer: No pertinent family hx Father Family History - Medical: , Alzheimer's Disease Family History - Cardiac/Respiratory: No pertinent hx Family History - Cancer: Prostate - Social History Living Situations: home Abuse History: No History of abuse Psych History: Hx of Anxiety, Hx of Depression, Current tx/ever been on anti- depressants or anti-anxiety meds Alcohol Use: none Drug Use: none - Immunizations Immunizations Up to Date: Yes Hx Pneumococcal Vaccination: Yes History of Influenza Vaccine: Yes Physical Exam - Physical Exam General Appearance: Present: wd/wn, alert, moderate distress Eye Exam: Normal inspection: bilateral, PERRL: bilateral Ears, Nose, Throat: Present: normal ENT inspection, H, normal pharynx Neck: Present: normal inspection, nontender Respiratory: Present: no respiratory distress, normal breath sounds, no accessory muscle use, chest nontender, lungs clear Cardiovascular/Chest: Present: regular rate, rhythm, no murmur, normal peripheral pulses Gastrointestinal/Abdominal: Present: normal bowel sounds, nondistended, tenderness Rectal Exam: Present: deferred Back Exam: Present: normal inspection, normal range of motion Extremity Exam: Present: normal inspection, non-tender, no edema, normal range of motion Neurological Exam: Present: alert, oriented, normal mood/affect Skin Exam: Present: normal color, warm/dry Lymphatic Exam: Present: no adenopathy ED Progress - Results and Orders Patient's Lab Results:: I have reviewed the patient's lab results. - Vital Signs Patient's Vital Signs:: I have reviewed the patient's vital signs. Vital Signs: Vital Signs 08/18/16 08/18/16 08/18/16 09:08 10:13 10:31 Temperature 36.9 C Pulse Rate 93 92 87 Respiratory 12 12 16 Rate Blood Pressure 151/72 145/70 147/77 O2 Sat by Pulse 96 94 95 Oximetry 08/18/16 12:49 Temperature Pulse Rate 95 Respiratory 17 Rate Blood Pressure 176/95 O2 Sat by Pulse 95 Oximetry - X-Ray X-Ray #1 X-Ray: abdomen Interpretation: Reviewed by me - CT/Ultrasound CT/Ultrasound Narrative: Results of the abdominal pelvis CT with IV and oral contrast were reviewed by me. - Progress/Reassessment Chief Complaint: Abdominal Pain Progress:: Improved Progress Note-Subjective: 08/18/16 13:01 Discussion of the current abdomen and pelvis CT when compared with one from December of last year showed some increasing thickening which could indicate possible colon cancer. I have discussed this with Dr. Ghosh and his office and patient will call there for an appointment. Patient is aware that she needs another colonoscopy as last one she had was 10 years ago. Plan - Plan Plan: We will treat the diverticulitis with antibiotics. Subsequent to completion of the antibiotics patient will undergo a likely colonoscopy with Dr. Ghosh. Departure - Departure Clinical Impression: Diverticulitis Qualifiers: Diverticulitis site: large intestine Diverticulitis bleeding: without bleeding Diverticulitis complication: without perforation or abscess Qualified Code(s): K57.32 - Diverticulitis of large intestine without perforation or abscess without bleeding Condition: Good Instructions: Diverticulitis, [id number] Referrals: Chana Hunt MD [Primary Care Provider] - Prescriptions: HYDROcodone/ACETAMINOPHEN [[place] 5-325] 1 each PO Q4H #20 tablet Sulfamethoxazole/Trimethoprim [Bactrim Ds] 1 tab PO BID #20 tab metroNIDAZOLE [Flagyl] 500 mg PO Q8H #30 tablet
== END 2016-08-18 13:19 | disposition home or self-care (01) ==
LOC: ER 09:00
DX: K57.32 Diverticulitis of large intestine without perforation or abscess without bleeding (principal); K21.9 Gastro-esophageal reflux disease without esophagitis; I10 Essential (primary) hypertension; F41.9 Anxiety disorder, unspecified; Z87.440 Personal history of urinary (tract) infections; Z95.5 Presence of coronary angioplasty implant and graft; E78.5 Hyperlipidemia, unspecified

== ENCOUNTER 2016-11-29 08:57 | Day surgery (SDC) | payer MEDICARE, BC ==
[~2016-11-29 08:57] MED LIST: RINGER'S SOLUTION,LACTATED 1,000 ML IV PRN
[2016-11-29] MEDS ORDERED: RINGER'S SOLUTION,LACTATED 1,000 ML IV ONE (09:36)
[2016-11-29 11:22] VITALS: BP 121/54
[2016-11-29] MEDS ORDERED: RINGER'S SOLUTION,LACTATED 1,000 ML IV PRN (15:43)
--- NOTE | 2016-11-29 19:12 | OR ---
Operative Report - Dictated Report Narrative: OPERATIVE REPORT DATE OF OPERATION: 11/29/2016 PREOPERATIVE DIAGNOSIS: No recent dedicated colon studies. Diverticulosis with previous diverticulitis POSTOPERATIVE DIAGNOSIS: Significant sigmoid diverticulosis with mild inflammation OPERATION: Colonoscopy SURGEON: Xena Ghosh MD ANESTHESIA: NATA Smart CRNA INDICATIONS FOR PROCEDURE: The patient is a 76-year-old female referred by Dr. Hunt. The patient was initially referred in August after a bout of uncomplicated diverticulitis. She has been treated at least twice before for this. She continues to have intermittent left lower quadrant pain related to bowel movements. FINDINGS: Sigmoid diverticulosis with mild inflammatory changes otherwise normal colonoscopy to the cecum NARRATIVE OF PROCEDURE: The patient was identified in the holding area, and prior to the administration of anesthetic, a multidisciplinary timeout was observed. With the patient in the left lateral position and after the administration of intravenous sedation, the perineum was inspected. There was no evidence of pilonidal disease or skin breakdown. The external appearance of the anus was normal. Sphincter tone was good. The flexible fiberoptic colonoscope was inserted into the rectum which was insufflated with air. The rectal mucosa and submucosal vascular pattern appeared normal, the prep was seen to be complete. The scope was advanced through the sigmoid colon, which contained numerous non-impacted diverticular openings. There were several patches of erythema and the patient did evidence discomfort on negotiating this area. The scope was advanced up the descending colon, and around the splenic flexure where the triangular haustral architecture of the transverse colon was seen. The scope was advanced across the transverse colon, around the hepatic flexure to the cecum, where the confluence of tenia and the ileocecal valve were identified. The mucosa at this level appeared normal. The scope was then slowly withdrawn in a circular fashion so that all aspects of colonic mucosa were inspected. The proximal colon was somewhat capacious in character over the colon was overall normal in course. The haustral architecture appeared well preserved throughout with no evidence of external compression. Aside from several patches of erythema in the sigmoid, the mucosa and submucosal vascular pattern appeared normal, specifically there was no gross evidence to suggest inflammatory bowel disease and no AV malformations were seen. Diverticulosis was moderate to severe in degree and confined primarily to the sigmoid colon. No polyps were encountered. The scope was gradually withdrawn to the level of the rectum. As much insufflated air as possible was removed. The scope was withdrawn from the patient and the procedure terminated. The patient tolerated the anesthetic and procedure well without complication and was transferred back to the ambulatory surgery area awake and in stable condition. The patient remained stable throughout a period of postoperative observation. She denied abdominal discomfort, was able to tolerate by mouth intake, and was up without assistance. I shared the operative findings with the patient and she was given copies of the photographs which appear in the medical record. She was discharged home with instructions not to engage in hazardous activity today , but may resume normal activity tomorrow, and advance diet as tolerated. She is to continue those medications as listed in the history and physical exam. RECOMMENDATION: Consider colon surveillance in 10 years depending upon findings and symptoms A pamphlet on diverticular disease was reviewed with her and given to her. I emphasized the importance of continuing to use Benefiber or equivalent in addition to a high fiber diet to maintain a regular stooling pattern and avoid future bouts of diverticulitis. Reviewed and electronically signed
== END 2016-11-29 08:58 | disposition home or self-care (01) ==
LOC: AMB 08:57
PROVIDERS: ATTEND Surgery
PROC: 0DJD8ZZ Inspection of Lower Intestinal Tract, Via Natural or Artificial Opening Endoscopic (ICD-10-PCS; principal; 2016-11-29 09:45)
DX: K57.30 Diverticulosis of large intestine without perforation or abscess without bleeding (principal); I10 Essential (primary) hypertension; E78.00 Pure hypercholesterolemia, unspecified; K21.9 Gastro-esophageal reflux disease without esophagitis; I25.10 Atherosclerotic heart disease of native coronary artery without angina pectoris; F41.1 Generalized anxiety disorder; F32.9 Major depressive disorder, single episode, unspecified; Z68.31 Body mass index [BMI] 31.0-31.9, adult

== ENCOUNTER 2018-01-19 09:10 | Inpatient (IN) | payer BC, MEDICARE ==
[2018-01-19 09:50] LABS: Urine Bilirubin 1 mg/dl (NEGATIVE); Urine Ketone Negative (NEGATIVE); Urine Protein Negative (NEGATIVE); Urine Urobilinogen 4 EU/dl (NORMAL)
[2018-01-19] MEDS ORDERED: DIATRIZOATE MEGLUMINE, SODIUM 30 ML BTL PO ONE (10:03)
[2018-01-19 10:16] LABS: Urine Appearance Slightly Cloudy (CLEAR); Urine Bacteria 2+; Urine Blood 5 /ul (NEGATIVE); Urine Color Amber; Urine Nitrite Positive (NEGATIVE); Urine RBC 0-5 /hpf (0-5)
[2018-01-19 10:17] LABS: Urine Mucus TRACE
[2018-01-19] MEDS ORDERED: DIATRIZOATE MEGLUMINE, SODIUM 30 ML BTL ONE (10:21)
[2018-01-19 10:25] LABS: Hematocrit 45.4 % (37.0-47.0); Hemoglobin 14.9 gm/dL (12.5-16.0); Mean Cell Volume 83.8 fl (78-100); Mean Corpuscular Hemoglobin 27.5 pg (27-31); Mean Corpuscular Hgb Conc 32.8 g/dl (32-36); Neutrophil # 17.6 K/mm3 (1.3-6.0); Neutrophil % 81.4 % (42-75.0); Platelet Count 485 K/mm3 (150-450); Red Blood Count 5.42 M/mm3 (4.2-5.4); Red Cell Distribution Width 13.6 % (11.5-14.0); White Blood Count 21.6 K/mm3 (4.0-10.5)
[2018-01-19 10:37] LABS: Albumin * 2.8 gm/dl (3.4-5.0); Anion Gap 11.8 mmol/L (6.8-13.8); BUN/Creatinine Ratio 17.1 (9.0-21.6); Bilirubin, Total 1.7 mg/dL (0.0-1.1); Ca. Corrected For Albumin 9.8 mg/dL (8.4-10.2); Calcium * 9.2 mg/dL (7.9-10.9); Carbon Dioxide 26.9 mmol/L (24-32.6); Potassium 3.7 mmol/L (3.4-4.6); Total Protein 7.9 gm/dL (6.2-8.2)
[2018-01-19] MEDS ORDERED: MORPHINE SULFATE 2 MG/ML DISP.SYRIN IV ONE (10:44)
[2018-01-19] MEDS ORDERED: MORPHINE SULFATE 2 MG/ML DISP.SYRIN ONE (10:55)
[2018-01-19] MEDS ORDERED: NORMAL SALINE 1,000 ML IV ONE (13:18)
[2018-01-19] MEDS ORDERED: CIPROFLOXACIN IN 5 % DEXTROSE 400 MG/200 ML BAG IV SCH (13:45)
[2018-01-19] MEDS ORDERED: metroNIDAZOLE/SODIUM CHLORIDE 500 MG/100 ML BAG IV SCH (13:45)
--- NOTE | 2018-01-19 14:08 | ERNOTE ---
Abdominal HPI - Narrative Date of Service: 01/19/18 - General Chief Complaint: Abdominal Pain Time Seen by Provider: 01/19/18 09:51 Source: patient Exam Limitations: no limitations - Immun/Allergies/Home Medications Immunizatons: IMMUNIZATION HX Immunizations Up to Date Yes History of Influenza Vaccine Yes Hx Pneumococcal Vaccination Yes Allergies/Adverse Reactions: Allergies Penicillins Allergy (Severe, Verified 01/19/18 09:25) Anaphylaxis levofloxacin [From Levaquin] Allergy (Mild, Verified 01/19/18 09:25) Hives nitrofurantoin [From Macrobid] Allergy (Mild, Verified 01/19/18 09:25) Hives lidocaine Adverse Reaction (Intermediate, Verified 01/19/18 09:25) ELEVATED HEART RATE atorvastatin calcium [From Lipitor] Adverse Reaction (Mild, Verified 01/19/18 09 :25) LEG PAIN clarithromycin [From Biaxin] Adverse Reaction (Mild, Verified 01/19/18 09:25) UPSET STOMACH Sulfa (Sulfonamide Antibiotics) [Sulfa(Sulfonamide Antibiotics)] Adverse Reaction (Mild, Verified 01/19/18 09:25) Nausea Home Medications: HOME MEDICATIONS Aspirin 325 tab PO DAILY 10/22/12 [Last Taken 10/22/14] Metoprolol Tartrate [Lopressor] 50 mg PO QAM 10/22/12 [Last Taken 11/29/16 05:30 ] Lovastatin [Altoprev] 20 mg PO HS 02/10/15 [Last Taken Unknown] Omeprazole [Prilosec] 20 mg PO DAILY 02/14/15 [Last Taken Unknown] Metoprolol Tartrate [Lopressor] 25 mg PO HS 11/18/16 [Last Taken Unknown] betamethasone dipropionate 0.05 % topical cream 1 applic TP BID PRN 11/11/17 [ Last Taken Unknown] naproxen sodium 220 mg tablet 220 mg PO Q12H 11/11/17 [Last Taken Unknown] nebulizers See Dose Instructions .ROUTE .MEDSUPPLY #1 ea 11/11/17 [Last Taken Unknown] fluticasone 250 mcg-salmeterol 50 mcg/dose blistr powdr for inhalation 1 inh IH BID #60 ea 12/28/17 [Last Taken Unknown] lorazepam 0.5 mg tablet 0.5 - 1 mg PO Q6H PRN #30 tab 01/05/18 [Last Taken Unknown] azithromycin 250 mg tablet See Label Instructions PO .COMPLEX #6 tab 01/17/18 [ Last Taken Unknown] - History of Present Illness Narrative: Patient presents to the ED for not feeling well and low abdominal pain. She relates that she had diverticulitis in November and just has never really felt beter. Today she hsa severe LLQ abdominal pain. This has been going on for over a month but is worse. No fever. no diarrhea but feels constipated. Pain worse with movement. No CP but has a cough. No acute SOB. Timing: constant, getting worse Quality: severe Activities at Onset: none Modifying Factors - (Improves): Present: other - nothing Modifying Factors - (Worsens): Present: other - movement Associated Symptoms: Absent: headache, chest pain Prior Abdominal Problems: Present: similar symptoms Prior Treatment: Present: recently seen Review of Systems - Review of Systems Constitutional: Absent: fever Respiratory: Present: cough. Absent: shortness of breath Cardiology: Absent: chest pain Gastrointestinal/Abdominal: Present: no symptoms reported All Other Systems: All systems neg except as marked Medical History (Last Reviewed 01/19/18 @ 14:05 by Azam Wong MD) Anxiety Onset Date: Unknown Coronary artery disease Onset Date: Unknown Depression Onset Date: Unknown Gastroesophageal reflux Onset Date: Unknown Hip pain Onset Date: ~10/27/12 Hypercholesteremia Onset Date: Unknown Joint pain Onset Date: ~08/10/12 Post-menopausal Onset Date: ~03/09/12 Shortness of breath Onset Date: ~12/08/15 Sinusitis, chronic Onset Date: Unknown Urinary incontinence Onset Date: ~04/19/12 Abdominal pain Onset Date: ~07/11/13 Atrophic vaginitis Onset Date: ~04/19/12 Contact dermatitis Onset Date: Unknown Cough Onset Date: Unknown Diverticulitis Onset Date: ~12/22/15 Helicobacter pylori (H. pylori) Onset Date: Unknown Leg pain Onset Date: ~05/11/12 Lichen sclerosus Onset Date: ~08/31/13 Onychomycosis Onset Date: Unknown Otitis media Onset Date: Unknown Patella fracture Onset Date: ~09/19/17 Pharyngitis Onset Date: ~02/06/13 Urinary tract infection Onset Date: ~03/21/12 Vulvar lesion Onset Date: ~04/19/12 Wrist fracture Onset Date: Unknown Surgical History: Surgical History (Last Reviewed 01/19/18 @ 14:05 by Azam Wong MD) H/O heart artery stent Onset Date: ~1998 H/O colonoscopy Onset Date: ~12/20/07 H/O cystoscopy Onset Date: ~02/14/15 H/O percutaneous transluminal coronary angioplasty Onset Date: ~09/1998 H/O total hip arthroplasty Onset Date: ~10/30/12 History of appendectomy Onset Date: ~1951 History of cataract surgery Onset Date: ~05/26/15 History of removal of ovarian cyst Onset Date: ~1959 History of uterine fibroid Onset Date: ~1962 Hx of cholecystectomy Onset Date: ~1979 Hx of esophagogastroduodenoscopy Onset Date: ~12/13/07 S/P ORIF (open reduction internal fixation) fracture Onset Date: ~03/25/13 S/P epidural steroid injection Onset Date: Unknown heart catheterization Onset Date: ~2006 Family History: Family History (Last Reviewed 01/19/18 @ 14:05 by Azam Wong MD) Father Alzheimers disease Mother No problems noted. Sister Cancer Sister 2 one with bowl problems and one with multiple problems Son Alive and well Aunt Cancer Uncle Cancer Social History: Preferred Language Tajik Abuse History No History of abuse Psych History Hx of Anxiety,Hx of Depression,Currently on Meds Alcohol Use none Drug Use none Physical Exam - Physical Exam General Appearance: Present: alert, no apparent distress Head Exam: Present: normal inspection, no evidence of injury Eye Exam: Normal inspection: bilateral, PERRL: bilateral Ears, Nose, Throat: Present: normal ENT inspection Neck: Present: normal inspection Respiratory: Present: no respiratory distress, normal breath sounds, no accessory muscle use, lungs clear Cardiovascular/Chest: Present: regular rate, rhythm, normal peripheral pulses Gastrointestinal/Abdominal: Present: normal bowel sounds, soft, tenderness. Absent: guarding, rebound Back Exam: Absent: CVA tenderness (R), CVA tenderness (L) Extremity Exam: Present: normal inspection Neurological Exam: Present: alert, no motor/sensory deficits Skin Exam: Present: normal color, warm/dry ED Progress - Results and Orders Patient's Lab Results:: I have reviewed the patient's lab results. - Vital Signs Patient's Vital Signs:: I have reviewed the patient's vital signs. Vital Signs: Vital Signs 01/19/18 09:21 01/19/18 11:11 01/19/18 11:42 Temperature 36.9 C Pulse Rate 100 114 H 116 H Respiratory Rate 12 12 16 Blood Pressure 149/69 114/61 122/62 O2 Sat by Pulse Oximetry 95 92 L 94 01/19/18 12:12 01/19/18 12:38 01/19/18 13:01 Temperature Pulse Rate 115 H 110 H 113 H Respiratory Rate 12 12 12 Blood Pressure 124/64 114/68 107/69 O2 Sat by Pulse Oximetry 94 97 96 01/19/18 13:29 01/19/18 13:49 Temperature Pulse Rate 108 H 114 H Respiratory Rate 12 12 Blood Pressure 113/68 118/71 O2 Sat by Pulse Oximetry 96 96 - CT/Ultrasound CT/Ultrasound Narrative: I reviewd CT report per radiology - Progress/Reassessment Chief Complaint: Abdominal Pain Progress Note-Subjective: 01/19/18 14:07 IV ABx given (she can take Cipro). I spoke with Dr Ghosh, he saw the patient in the Ed. I spoke with Dr Burleson, he will admit. Patient agreeable. Departure Clinical Impression: Colonic diverticular abscess - Departure Disposition: Still a patient Condition: Fair Referrals: Chana Hunt MD [Primary Care Provider] -
--- NOTE | 2018-01-19 17:05 | HP ---
Chief Complaint - Chief Complaint Date of Service: 01/19/18 Time of Service: 17:04 Chief Complaint: left lower quadrant pain History of Present Illness: Zuleyka Koenig, is a 77 years old white female, patient of Dr. Hunt, past medical history of hypertension, diverticulitis, coronary artery disease, gastroesophageal reflux disease, hyperlipidemia, who was admitted on 01/19/2018 because of left lower quadrant abdominal pain. The patient has not been feeling well since 2 months ago. She said she had been having left lower quadrant pain, dull, nonradiating, associated with nausea, relieved with bowel movement, increased with eating. She did not notice any fever or chills. Last November she was treated with Cipro and Flagyl by the walk-in clinic for diverticulitis. She went to our emergency room today where a CT scan of her abdomen and pelvis showed -"Abnormal findings of the descending and sigmoid colonic segment suggestive of diverticulitis versus colitis or even a potential mass complicated by inflammation/infection. There is interval development of adjacent extra luminal gas, and potential horseshoe-shaped fluid collection adjacent to the sigmoid colon/within the sigmoid colonic wall which could represent contained perforation and abscess formation." Her white blood cell count was elevated in the 20,000 range. She was then admitted for IV antibiotics. Interventional radiology felt that it was too dangerous to do drainage because of a small window. Medical History (Last Reviewed 01/19/18 @ 14:05 by Azam Wong MD) Anxiety Onset Date: Unknown Coronary artery disease Onset Date: Unknown Depression Onset Date: Unknown Gastroesophageal reflux Onset Date: Unknown Hip pain Onset Date: ~10/27/12 Hypercholesteremia Onset Date: Unknown Joint pain Onset Date: ~08/10/12 Post-menopausal Onset Date: ~03/09/12 Shortness of breath Onset Date: ~12/08/15 Sinusitis, chronic Onset Date: Unknown Urinary incontinence Onset Date: ~04/19/12 Abdominal pain Onset Date: ~07/11/13 Atrophic vaginitis Onset Date: ~04/19/12 Contact dermatitis Onset Date: Unknown Cough Onset Date: Unknown Diverticulitis Onset Date: ~12/22/15 Helicobacter pylori (H. pylori) Onset Date: Unknown Leg pain Onset Date: ~05/11/12 Lichen sclerosus Onset Date: ~08/31/13 Onychomycosis Onset Date: Unknown Otitis media Onset Date: Unknown Patella fracture Onset Date: ~09/19/17 Pharyngitis Onset Date: ~02/06/13 Urinary tract infection Onset Date: ~03/21/12 Vulvar lesion Onset Date: ~04/19/12 Wrist fracture Onset Date: Unknown Surgical History: Surgical History (Last Reviewed 01/19/18 @ 14:05 by Azam Wong MD) H/O heart artery stent Onset Date: ~1998 H/O colonoscopy Onset Date: ~12/20/07 H/O cystoscopy Onset Date: ~02/14/15 H/O percutaneous transluminal coronary angioplasty Onset Date: ~09/1998 H/O total hip arthroplasty Onset Date: ~10/30/12 History of appendectomy Onset Date: ~1951 History of cataract surgery Onset Date: ~05/26/15 History of removal of ovarian cyst Onset Date: ~1959 History of uterine fibroid Onset Date: ~1962 Hx of cholecystectomy Onset Date: ~1979 Hx of esophagogastroduodenoscopy Onset Date: ~12/13/07 S/P ORIF (open reduction internal fixation) fracture Onset Date: ~03/25/13 S/P epidural steroid injection Onset Date: Unknown heart catheterization Onset Date: ~2006 Family History: Family History (Last Reviewed 01/19/18 @ 14:05 by Azam Wong MD) Father Alzheimers disease Mother No problems noted. 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 Smoking Status Never smoker Have you smoked in the past 12 No months Abuse History No History of abuse Psych History Hx of Anxiety,Hx of Depression,Currently on Meds Alcohol Use none Drug Use none Review Of Systems (GEN) - Review of Systems Generalized/Overall Review: Present: Weakness, Fever. Absent: Chills Respiratory: Present: Cough. Absent: Shortness of Breath, Orthopnea Cardiac: Absent: Chest Pain, Edema, Palpitations Abdominal: Present: Nausea, Abdominal Pain, Constipation. Absent: Vomiting Genitourinary: Absent: Urgency, Frequency Musculoskeletal: Present: Joint Pain Immunizations: IMMUNIZATION HX Immunizations Up to Date Yes History of Influenza Vaccine Yes Hx Pneumococcal Vaccination Yes Allergies/Adverse Reactions: Allergies Allergy/AdvReac Type Severity Reaction Status Date / Time Penicillins Allergy Severe Anaphylaxis Verified 01/19/18 09:25 levofloxacin [From Levaquin] Allergy Mild Hives Verified 01/19/18 09:25 nitrofurantoin Allergy Mild Hives Verified 01/19/18 09:25 [From Macrobid] lidocaine AdvReac Intermediate ELEVATED Verified 01/19/18 09:25 HEART RATE atorvastatin calcium AdvReac Mild LEG PAIN Verified 01/19/18 09:25 [From Lipitor] clarithromycin [From Biaxin] AdvReac Mild UPSET Verified 01/19/18 09:25 STOMACH Sulfa (Sulfonamide AdvReac Mild Nausea Verified 01/19/18 09:25 Antibiotics) [Sulfa(Sulfonamide Antibiotics)] Home Medications: HOME MEDICATIONS Aspirin 325 tab PO DAILY 10/22/12 [Last Taken 01/18/18 09:00] Metoprolol Tartrate [Lopressor] 50 mg PO QAM 10/22/12 [Last Taken 01/18/18 09:00 ] Lovastatin [Altoprev] 20 mg PO HS 02/10/15 [Last Taken 01/17/18 21:00] Omeprazole [Prilosec] 20 mg PO DAILY 02/14/15 [Last Taken 01/17/18 09:00] Metoprolol Tartrate [Lopressor] 25 mg PO HS 11/18/16 [Last Taken 01/17/18 21:00] betamethasone dipropionate 0.05 % topical cream 1 applic TP BID PRN 11/11/17 [ Last Taken Unknown] naproxen sodium 220 mg tablet 220 mg PO Q12H PRN 11/11/17 [Last Taken Unknown] lorazepam 0.5 mg tablet 0.5 - 1 mg PO Q6H PRN #30 tab 01/05/18 [Last Taken 01/18 21:00] azithromycin 250 mg tablet See Label Instructions PO .COMPLEX #6 tab 01/17/18 [ Last Taken 01/18/18 10:00] Budesonide/Formoterol Fumarate [Symbicort 80-4.5 Mcg Inhaler] 1 puff IH DAILY PRN 01/19/18 [Last Taken Unknown] Fluticasone/Salmeterol [Advair 250-50 Diskus] 1 inh IH BID PRN 01/19/18 [Last Taken Unknown] Exam - Exam Vital Signs: Vital Signs - Last Taken Temp 36.8 C 01/19/18 14:30 Pulse 106 H 01/19/18 14:30 Resp 16 01/19/18 14:30 BP 130/73 01/19/18 14:30 Pulse Ox 93 01/19/18 14:30 Constitutional: Present: Alert, Oriented x3, Cooperative Eye Exam: bilateral eye: normal inspection, PERRL, EOMI Neck: Present: supple Respiratory: Present: decreased breath sounds, No rales, No wheezing Cardiovascular/Chest: Present: regular rate, rhythm, no JVD, no murmur Abdomen: Present: tender, firm, distended - slightly, hypoactive Extremity: Present: no pedal edema, no calf tenderness Diagnostic Studies: Abnormal Lab Results 01/19/18 01/19/18 01/19/18 Range/Units 09:36 10:16 10:16 WBC 21.6 H (4.0-10.5) K/mm3 RBC 5.42 H (4.2-5.4) M/mm3 Plt Count 485 H (150-450) K/mm3 Immature Gran % (Auto) 1.60 H (0.001-0.429) % Immature Gran # (Auto) 0.34 H (0.000-0.0310) K/mm3 Neutrophils % 81.4 H (42-75.0) % Lymphocytes % 9.1 L (20-51) % Neutrophils # 17.6 H (1.3-6.0) K/mm3 Monocytes # 1.5 H (0.0-1.0) k/mm3 Total Bilirubin 1.7 H (0.0-1.1) mg/dL Albumin 2.8 L (3.4-5.0) gm/dl Urine Blood 5 H (NEGATIVE) /ul Urine Nitrate Positive H (NEGATIVE) Urine Bilirubin 1 H (NEGATIVE) mg/dl Urine Urobilinogen 4 H (NORMAL) EU/dl Ur Leukocyte Esterase 75 H (NEGATIVE) /ul Urine WBC 5-10 H (0-5) /hpf Urine Bacteria 2+ H (NONE) Laboratory Results WBC 21.6 K/mm3 (4.0-10.5) H 01/19/18 10:16 RBC 5.42 M/mm3 (4.2-5.4) H 01/19/18 10:16 Hgb 14.9 gm/dL (12.5-16.0) 01/19/18 10:16 Hct 45.4 % (37.0-47.0) 01/19/18 10:16 MCV 83.8 fl (78-100) 01/19/18 10:16 MCH 27.5 pg (27-31) 01/19/18 10:16 MCHC 32.8 g/dl (32-36) 01/19/18 10:16 RDW 13.6 % (11.5-14.0) 01/19/18 10:16 Plt Count 485 K/mm3 (150-450) H 01/19/18 10:16 MPV 9.0 fl (8-12.5) 01/19/18 10:16 Immature Gran % (Auto) 1.60 % (0.001-0.429) H 01/19/18 10:16 Immature Gran # (Auto) 0.34 K/mm3 (0.000-0.0310) H 01/19/18 10:16 Neutrophils % 81.4 % (42-75.0) H 01/19/18 10:16 Lymphocytes % 9.1 % (20-51) L 01/19/18 10:16 Monocytes % 6.9 % (0.0-9) 01/19/18 10:16 Eosinophils % 0.4 % (0.0-3.0) 01/19/18 10:16 Basophils % 0.6 % (0.0-1.0) 01/19/18 10:16 Nucleated RBC % 0.0 k/mm3 (0-1) 01/19/18 10:16 Neutrophils # 17.6 K/mm3 (1.3-6.0) H 01/19/18 10:16 Lymphocytes # 1.97 k/mm3 (1.5-3.5) 01/19/18 10:16 Monocytes # 1.5 k/mm3 (0.0-1.0) H 01/19/18 10:16 Eosinophils # 0.1 k/mm3 (0.0-0.7) 01/19/18 10:16 Absolute Basophils 0.1 k/mm3 (0.0-0.1) 01/19/18 10:16 Sodium 133 mmol/L (132-142) 01/19/18 10:16 Plasma Sodium 133 mmol/L (130-142) 01/19/18 10:16 Potassium 3.7 mmol/L (3.4-4.6) 01/19/18 10:16 Chloride 98 mmol/L (97-106) 01/19/18 10:16 Carbon Dioxide 26.9 mmol/L (24-32.6) 01/19/18 10:16 Anion Gap 11.8 mmol/L (6.8-13.8) 01/19/18 10:16 BUN 13 mg/dL (3-23) 01/19/18 10:16 Creatinine 0.76 mg/dL (0.4-1.4) 01/19/18 10:16 Est GFR (Non-Af Amer) 79 mL/min (60-130) 01/19/18 10:16 BUN/Creatinine Ratio 17.1 (9.0-21.6) 01/19/18 10:16 Random Glucose 101 mg/dL (70-110) 01/19/18 10:16 Calcium 9.2 mg/dL (7.9-10.9) 01/19/18 10:16 Calcium Adj for Albumin 9.8 mg/dL (8.4-10.2) 01/19/18 10:16 Total Bilirubin 1.7 mg/dL (0.0-1.1) H 01/19/18 10:16 AST 20 U/L (0-48) 01/19/18 10:16 ALT 19 U/L (19-67) 01/19/18 10:16 Alkaline Phosphatase 62 U/L (50-170) 01/19/18 10:16 Total Protein 7.9 gm/dL (6.2-8.2) 01/19/18 10:16 Albumin 2.8 gm/dl (3.4-5.0) L 01/19/18 10:16 Lipase 176 U/L (73-393) 01/19/18 10:16 Urine Color Maureen 01/19/18 09:36 Urine Appearance Slightly cloudy (CLEAR) 01/19/18 09:36 Urine pH 6.0 pH (5.0-7.0) 01/19/18 09:36 Ur Specific [place] 1.020 SP.GR. (1.005-1.010) 01/19/18 09:36 Urine Protein Negative mg/dL (NEGATIVE) 01/19/18 09:36 Urine Glucose (UA) Negative mg/dL (NEGATIVE) 01/19/18 09:36 Urine Ketones Negative mg/dL (NEGATIVE) 01/19/18 09:36 Urine Blood 5 /ul (NEGATIVE) H 01/19/18 09:36 Urine Nitrate Positive (NEGATIVE) H 01/19/18 09:36 Urine Bilirubin 1 mg/dl (NEGATIVE) H 01/19/18 09:36 Urine Ictotest Negative (NEGATIVE) 01/19/18 09:36 Urine Urobilinogen 4 EU/dl (NORMAL) H 01/19/18 09:36 Ur Leukocyte Esterase 75 /ul (NEGATIVE) H 01/19/18 09:36 Urine RBC 0-5 /hpf (0-5) 01/19/18 09:36 Urine WBC 5-10 /hpf (0-5) H 01/19/18 09:36 Ur Epithelial Cells 0-5 /hpf (0-5) 01/19/18 09:36 Urine Bacteria 2+ (NONE) H 01/19/18 09:36 Urine Mucus Trace (NONE) 01/19/18 09:36 Urine Culture Comments Culture to follow 01/19/18 09:36 Assessment/Plan - Assessment/Plan (1) Diverticulitis Assessment: with microperforation. will keep patient NPO. continue with IV fluids but since she already had Cipro/flagyl last November, I tried changing it to IV Zosyn or merrem but patient is allergic to PCN. . Surgery was consulted. Problem: Acute Qualifiers: Diverticulitis site: large intestine Diverticulitis bleeding: without bleeding Diverticulitis complication: with perforation and abscess Qualified Code(s): K57.20 - Diverticulitis of large intestine with perforation and abscess without bleeding (2) Colonic diverticular abscess Problem: Acute (3) UTI (urinary tract infection) Assessment: continue with IV antibiotics. Problem: Acute (4) HTN (hypertension) Problem: Acute (5) GERD (gastroesophageal reflux disease) Problem: Acute (6) Hyperlipemia Problem: Acute
[2018-01-19] MEDS ORDERED: METOPROLOL TARTRATE 25 MG TABLET PO SCH (21:19)
[2018-01-19] MEDS: DEXTROSE 5%-0.5 NORMAL SALINE 1,000 ML IV PRN (21:39)
[2018-01-20] MEDS ORDERED: MORPHINE SULFATE 2 MG/ML DISP.SYRIN ONE (04:57)
[2018-01-20] MEDS: MORPHINE SULFATE 2 MG/ML DISP.SYRIN IV PRN (04:59)
[2018-01-20] MEDS: DEXTROSE 5%-0.5 NORMAL SALINE 1,000 ML IV PRN ×2 (07:53→17:49)
[2018-01-20 08:08] LABS: Hematocrit 39.1 % (37.0-47.0); Hemoglobin 12.7 gm/dL (12.5-16.0); Mean Cell Volume 84.6 fl (78-100); Mean Corpuscular Hemoglobin 27.5 pg (27-31); Mean Corpuscular Hgb Conc 32.5 g/dl (32-36); Mean Platelet Volume 9.2 fl (8-12.5); Neutrophil % 73.4 % (42-75.0); Platelet Count 382 K/mm3 (150-450); Red Blood Count 4.62 M/mm3 (4.2-5.4); Red Cell Distribution Width 13.5 % (11.5-14.0); White Blood Count 13.6 K/mm3 (4.0-10.5)
[2018-01-20 08:17] LABS: Anion Gap 8.6 mmol/L (6.8-13.8); BUN/Creatinine Ratio 14.5 (9.0-21.6); Calcium * 8.6 mg/dL (7.9-10.9); Carbon Dioxide 28.9 mmol/L (24-32.6); Estimated Creat Clear 59.9; Potassium 3.5 mmol/L (3.4-4.6)
--- NOTE | 2018-01-20 09:18 | CONS ---
[facility] Date of Service: 01/19/18 Narrative: The patient is a 77-year-old female (known to me) who presented to the emergency room with lower abdominal pain and nausea. 12/02/2017 the patient had presented with left lower quadrant pain and had a CT scan compatible with uncomplicated sigmoid diverticulitis. She was treated with a 14 day course of Cipro and Flagyl. Apparently she felt some better at that time, however then she goes on to say that she has continued to have lower abdominal discomfort for the past 2 months or so. The pain has not gotten acutely worse yesterday or today, she just decided to come to the emergency room because she was tired of being sick. The patient is not a precise historian and the following history has been gleaned from the medical record: She was seen by Dr. Hunt on 12/15/2017. At that time she complained of a chronic cough and denied GI symptoms. A chest x-ray was obtained which was normal. She was given a Z-Tye She was seen again by Dr. Hunt on 822 with complaints of urinary frequency and dysuria. She was started empirically on Cipro but this was changed to Bactrim DS when the culture grew E. coli She was seen again by Dr. Hunt on 01/17/2018 again complaining of chronic harsh cough and was again prescribed a Z-Tye. Significant past GI history: She was referred to me in August 2016 after an ER visit for acute uncomplicated diverticulosis seen on CT scan and a follow-up colonoscopy was advised. At that time high-fiber diet sheets were reviewed with her in the mechanism of action of Benefiber and MiraLAX were discussed and a trial was recommended. She was returned to schedule colonoscopy after 4-6 weeks to ensure complete resolution of inflammation. She was specifically instructed to call her progress with Benefiber and MiraLAX. Her initial phone call revealed that Benefiber was not working and it was suggested she start MiraLAX. She then developed diarrhea for which she called Dr. Hunt's office and a workup for diarrhea was performed. She also had subsequent empiric antibiotic treatment for left lower quadrant discomfort however when she returned for her colonoscopy stated that had gotten better. She had stopped using Benefiber and MiraLAX and was taking "fiber gummy's" which she stated did not work very well. Old records show treatment for diverticulitis in December 2015 and again in June 2016. She had colonoscopy in November 2016 which revealed significant diverticulosis with several very small patches of patchy nonspecific inflammation. No polyps or tumors were identified. Her penicillin allergy is after some pills taken when she was 21 years old which caused her throat to close up. Reviewing the record she has taken cephalexin in the past with no problem. Source: patient, family, RN notes reviewed, old records Exam Limitations: no limitations - History of Present Illness Allergies/Adverse Reactions: Allergies Penicillins Allergy (Severe, Verified 01/19/18 09:25) Anaphylaxis levofloxacin [From Levaquin] Allergy (Mild, Verified 01/19/18 09:25) Hives nitrofurantoin [From Macrobid] Allergy (Mild, Verified 01/19/18 09:25) Hives lidocaine Adverse Reaction (Intermediate, Verified 01/19/18 09:25) ELEVATED HEART RATE atorvastatin calcium [From Lipitor] Adverse Reaction (Mild, Verified 01/19/18 09 :25) LEG PAIN clarithromycin [From Biaxin] Adverse Reaction (Mild, Verified 01/19/18 09:25) UPSET STOMACH Sulfa (Sulfonamide Antibiotics) [Sulfa(Sulfonamide Antibiotics)] Adverse Reaction (Mild, Verified 01/19/18 09:25) Nausea Home Medications: Home Medications Medication Instructions Recorded Last Taken Aspirin 325 tab PO DAILY 10/22/12 01/18/18 09:00 Metoprolol Tartrate [Lopressor] 50 mg PO QAM 10/22/12 01/18/18 09:00 Lovastatin [Altoprev] 20 mg PO HS 02/10/15 01/17/18 21:00 Omeprazole [Prilosec] 20 mg PO DAILY 02/14/15 01/17/18 09:00 Metoprolol Tartrate [Lopressor] 25 mg PO HS 11/18/16 01/17/18 21:00 betamethasone dipropionate 0.05 % 1 applic TP BID PRN 11/11/17 Unknown topical cream naproxen sodium 220 mg tablet 220 mg PO Q12H PRN 11/11/17 Unknown lorazepam 0.5 mg tablet 0.5 - 1 mg PO Q6H PRN #30 tab 01/05/18 01/18/18 21:00 azithromycin 250 mg tablet See Label Instructions PO .COMPLEX 01/17/18 01/18/18 10:00 #6 tab Budesonide/Formoterol Fumarate 1 puff IH DAILY PRN 01/19/18 Unknown [Symbicort 80-4.5 Mcg Inhaler] Fluticasone/Salmeterol [Advair 1 inh IH BID PRN 01/19/18 Unknown 250-50 Diskus] Procedures Application of splint (06/10/03) Colonoscopy (12/20/07) Esophagogastroduodenoscopy [EGD] with closed biopsy (12/13/07) Injection of anesthetic into spinal canal for analgesia (06/16/12) Injection of other agent into spinal canal (06/16/12) Injection of steroid (06/16/12) Inspection of Bladder, Via Natural or Artificial Opening Endoscopic (02/14/15) Inspection of Lower Intestinal Tract, Via Natural or Artificial Opening Endoscopic (11/29/16) Replacement of Left Lens with Synthetic Substitute, Percutaneous Approach (06/16) Replacement of Right Lens with Synthetic Substitute, Percutaneous Approach () Medications - Medications Current Medications: Current Medications Metronidazole (Flagyl) 500 mg in 100 mls @ 100 mls/hr IV ONCE MANUEL; Protocol Stop: 02/18/18 13:46 Last Infusion: 01/19/18 15:17 Dose: Infused Ciprofloxacin/Dextrose (Cipro) 400 mg in 200 mls @ 200 mls/hr IV ONCE MANUEL; Protocol Stop: 02/18/18 13:46 Last Infusion: 01/19/18 16:55 Dose: Infused Dextrose/Sodium Chloride (Dextrose 5%-0.45%Ns) 1,000 mls @ 100 mls/hr IV .Q10H PRN PRN Reason: HYDRATION Stop: 02/18/18 21:18 Last Admin: 01/20/18 07:53 Dose: 100 mls/hr Morphine Sulfate (Morphine Sulfate) 2 mg IV Q6H PRN PRN Reason: Pain Stop: 02/19/18 04:39 Last Admin: 01/20/18 04:59 Dose: 2 mg Review of Systems - Review of Systems Generalized/Overall Review: Present: Malaise, Fatigue. Absent: Chills, Fever EENTM: Present: No Symptoms Reported Respiratory: Present: Cough Cardiac: Absent: Chest Pain, Edema Abdominal: Present: Other - Chronic lower abdominal discomfort worse on the left side. It does hurt to cough but only on the left Musculoskeletal: Present: No Symptoms Reported Neurological: Present: No Symptoms Reported Skin: Present: No Symptoms Reported Physical Examination - Exam Vital Signs: Vital Signs - Last Taken Temp Afebrile 01/20/18 1329 Pulse 108 01/20/18 1329 Resp 12 01/20/18 1329 BP 113/68 01/20/18 1329 Pulse Ox 96 01/20/18 1329 O2 Oxygen Delivery Method Room Air Constitutional: Present: Alert, Oriented x3, Cooperative, Mild distress, Overweight ENT Exam: Present: normal ENT inspection, other - Dentures Eye Exam: bilateral eye: normal inspection Breasts: Present: Exam deferred Respiratory: Present: lungs clear Cardiovascular/Chest: Present: regular rate, rhythm Abdomen: Present: other - Obese protuberant. Soft, tympanitic to percussion without percussion tenderness. Direct tenderness in the left lower quadrant with rebound but no involuntary guarding /Rectal: Present: Exam deferred Extremity: Present: normal range of motion, no pedal edema, no calf tenderness Skin Exam: Present: pallor Neurologic: Present: electrical and electronic assembler II-XII nml as tested, normal cerebellar test, other - Examined on exam table gait not tested Appearance: Present: appropriate appearance, other - Not a precise historian Eye contact: Present: cooperative, good eye contact Thoughts: Present: normal thought pattern - Results and Findings: Narrative: Initial white blood cell count is 21,000. She is tachycardic but does not have other features of Sirs or sofa. CT scan shows a worsening of the process in the left lower quadrant however the size of the possible abscess is less than 4 cm and there is no generalized perforation. Lab/Microbiology results last 24 hrs: Abnormal/Pending Laboratory Last 24 HRS 01/20/18 01/19/18 01/19/18 07:58 10:16 10:16 WBC 13.6 H D 21.6 H RBC 5.42 H Plt Count 485 H Immature Gran % (Auto) 1.20 H 1.60 H Immature Gran # (Auto) 0.16 H 0.34 H Neutrophils % 81.4 H Lymphocytes % 14.8 L 9.1 L Neutrophils # 10.0 H 17.6 H Monocytes # 1.1 H 1.5 H Total Bilirubin 1.7 H Albumin 2.8 L Urine Blood Urine Nitrate Urine Bilirubin Urine Urobilinogen Ur Leukocyte Esterase Urine WBC Urine Bacteria 01/19/18 09:36 WBC RBC Plt Count Immature Gran % (Auto) Immature Gran # (Auto) Neutrophils % Lymphocytes % Neutrophils # Monocytes # Total Bilirubin Albumin Urine Blood 5 H Urine Nitrate Positive H Urine Bilirubin 1 H Urine Urobilinogen 4 H Ur Leukocyte Esterase 75 H Urine WBC 5-10 H Urine Bacteria 2+ H Culture 01/19/18 10:00 Urine Culture - Preliminary Urine,Voided Gram Negative Bacilli - Assessments/Findings (1) Colonic diverticular abscess Diagnosis(s): The diverticular process appears worse than in November, however still appears to be localized. There is localized tenderness but no general peritoneal signs. The abscess is small and not amenable to percutaneous drainage. Currently she does not meet criteria for emergent operation which would involve a colostomy. A pamphlet on diverticular disease was reviewed with her and given to her. The options of IV antibiotics and the surgical options of sigmoid resection with colostomy and subsequent re-anastomoses were explained. She does not want surgery. She does not want to be transferred. Have asked that blood cultures be obtained prior to starting IV Cipro and Flagyl. Her history would suggest that she would tolerate Zosyn Would advise prolonged treatment until her white blood cell count normalizes and she becomes nontender. Will follow the patient Problem: Acute
--- NOTE | 2018-01-20 09:22 | PN ---
Dictated Progress Note - Date and Time Seen: Date: 01/20/18 Time: 09:00 - Progress Note Narrative: Vital Signs - Last Taken Temp 37.3 C 01/20/18 08:27 Pulse 75 01/20/18 08:27 Resp 18 01/20/18 08:27 BP 123/64 01/20/18 08:27 Pulse Ox 93 01/20/18 08:27 Abnormal/Pending Laboratory Last 24 HRS 01/20/18 01/19/18 01/19/18 07:58 10:16 10:16 WBC 13.6 H D 21.6 H RBC 5.42 H Plt Count 485 H Immature Gran % (Auto) 1.20 H 1.60 H Immature Gran # (Auto) 0.16 H 0.34 H Neutrophils % 81.4 H Lymphocytes % 14.8 L 9.1 L Neutrophils # 10.0 H 17.6 H Monocytes # 1.1 H 1.5 H Total Bilirubin 1.7 H Albumin 2.8 L Urine Blood Urine Nitrate Urine Bilirubin Urine Urobilinogen Ur Leukocyte Esterase Urine WBC Urine Bacteria 01/19/18 09:36 WBC RBC Plt Count Immature Gran % (Auto) Immature Gran # (Auto) Neutrophils % Lymphocytes % Neutrophils # Monocytes # Total Bilirubin Albumin Urine Blood 5 H Urine Nitrate Positive H Urine Bilirubin 1 H Urine Urobilinogen 4 H Ur Leukocyte Esterase 75 H Urine WBC 5-10 H Urine Bacteria 2+ H Culture 01/19/18 10:00 Urine Culture - Preliminary Urine,Voided Gram Negative Bacilli Her tachycardia has resolved with IV fluids. Her vital signs are otherwise normal Her urine is growing E. coli, blood cultures are not yet reported. Her white blood cell count has decreased to around 13,000 The patient states she feels much much better but is spinning frame tender in left lower quadrant. She is hungry. Her exam is improved, although she still has deep tenderness in the left lower quadrant. She is tympanitic and has not yet moved her bowels significantly despite p.o. contrast Impression: She appears clinically improved Plan: She should be continued on IV antibiotics. Resist the temptation to feed the patient until all parameters are improved and she is passing gas Will continue to follow the patient
--- NOTE | 2018-01-20 09:35 | PN ---
Subjective - Date and Time Seen Date: 01/20/18 Time: 09:30 Subjective Narrative: Patient is feeling better. Wants to eat. Tmax 37.3. Objective - Review of Systems Generalized/Overall Review: Denies: Chills, Fever Respiratory: Denies: Cough, Shortness of Breath, Orthopnea Cardiac: Denies: Chest Pain, Edema, Palpitations Abdominal: Reports: Nausea, Abdominal Pain. Denies: Vomiting Genitourinary Symptoms: Denies: Urgency, Frequency Musculoskeletal Complaints: Denies: Back Pain - Vitals Vitals: Last Vital Signs Temp 37.3 C 01/20/18 08:27 Pulse 75 01/20/18 08:27 Resp 18 01/20/18 08:27 BP 123/64 01/20/18 08:27 Pulse Ox 93 01/20/18 08:27 - Abnormal Lab Findings Abnormal Lab Findings: Abnormal Lab Results 01/19/18 01/19/18 01/19/18 Range/Units 09:36 10:16 10:16 WBC 21.6 H (4.0-10.5) K/mm3 RBC 5.42 H (4.2-5.4) M/mm3 Plt Count 485 H (150-450) K/mm3 Immature Gran % (Auto) 1.60 H (0.001-0.429) % Immature Gran # (Auto) 0.34 H (0.000-0.0310) K/mm3 Neutrophils % 81.4 H (42-75.0) % Lymphocytes % 9.1 L (20-51) % Neutrophils # 17.6 H (1.3-6.0) K/mm3 Monocytes # 1.5 H (0.0-1.0) k/mm3 Total Bilirubin 1.7 H (0.0-1.1) mg/dL Albumin 2.8 L (3.4-5.0) gm/dl Urine Blood 5 H (NEGATIVE) /ul Urine Nitrate Positive H (NEGATIVE) Urine Bilirubin 1 H (NEGATIVE) mg/dl Urine Urobilinogen 4 H (NORMAL) EU/dl Ur Leukocyte Esterase 75 H (NEGATIVE) /ul Urine WBC 5-10 H (0-5) /hpf Urine Bacteria 2+ H (NONE) 01/20/18 Range/Units 07:58 WBC 13.6 H D (4.0-10.5) K/mm3 RBC (4.2-5.4) M/mm3 Plt Count (150-450) K/mm3 Immature Gran % (Auto) 1.20 H (0.001-0.429) % Immature Gran # (Auto) 0.16 H (0.000-0.0310) K/mm3 Neutrophils % (42-75.0) % Lymphocytes % 14.8 L (20-51) % Neutrophils # 10.0 H (1.3-6.0) K/mm3 Monocytes # 1.1 H (0.0-1.0) k/mm3 Total Bilirubin (0.0-1.1) mg/dL Albumin (3.4-5.0) gm/dl Urine Blood (NEGATIVE) /ul Urine Nitrate (NEGATIVE) Urine Bilirubin (NEGATIVE) mg/dl Urine Urobilinogen (NORMAL) EU/dl Ur Leukocyte Esterase (NEGATIVE) /ul Urine WBC (0-5) /hpf Urine Bacteria (NONE) - Exam Constitutional: Present: Alert, Oriented x3, Cooperative, Obese ENT Exam: Present: hearing grossly normal Neck: Present: supple Respiratory: Present: decreased breath sounds, No rales, No wheezing Cardiovascular/Chest: Present: regular rate, rhythm, no JVD, no murmur Abdomen: Present: soft, tender, hypoactive. Absent: rebound tenderness Extremity: Present: no pedal edema, no calf tenderness Assessment/Plan - Problems/Diagnosis (1) Diverticulitis Problem: Acute Qualifiers: Diverticulitis site: large intestine Diverticulitis bleeding: without bleeding Diverticulitis complication: with perforation and abscess Qualified Code(s): K57.20 - Diverticulitis of large intestine with perforation and abscess without bleeding Narrative: continue with IV antibiotics. Will try her on Meropenem as it has less cross reactivity with with PCN. than Zosyn (2) Colonic diverticular abscess Problem: Acute Narrative: same as above. she did not want surgery or transfer per Dr. sequeira's notes. She will stay on ice chips until her WBC goes down to lorraine, passes gas , and has improvement on her abdominal pain. (3) UTI (urinary tract infection) Problem: Acute Narrative: continue with IV antibiotics. Gram negative bacilli on C & S. (4) HTN (hypertension) Problem: Acute (5) GERD (gastroesophageal reflux disease) Problem: Acute (6) Hyperlipemia Problem: Acute
[2018-01-20] MEDS: METOPROLOL TARTRATE 50 MG TABLET PO SCH (09:45)
[2018-01-20] MEDS: MEROPENEM 1 GM in NORMAL SALINE 100 ML IV SCH ×2 (10:15→17:22)
[2018-01-20] MEDS: ENOXAPARIN SODIUM 40 MG/0.4 ML SYRG SC SCH (12:22)
[2018-01-20] MEDS: SACCHAROMYCES BOULARDII 250 MG CAPSULE PO SCH (21:45)
[2018-01-20] MEDS: METOPROLOL TARTRATE 25 MG TABLET PO SCH (21:45)
[2018-01-21] MEDS: MORPHINE SULFATE 2 MG/ML DISP.SYRIN IV PRN ×3 (01:14→23:52)
[2018-01-21] MEDS: MEROPENEM 1 GM in NORMAL SALINE 100 ML IV SCH ×3 (02:26→17:59)
[2018-01-21] MEDS: DEXTROSE 5%-0.5 NORMAL SALINE 1,000 ML IV PRN ×3 (02:28→23:21)
[2018-01-21] MEDS: METOPROLOL TARTRATE 50 MG TABLET PO SCH (09:52)
[2018-01-21] MEDS: SACCHAROMYCES BOULARDII 250 MG CAPSULE PO SCH ×2 (09:52→20:34)
[2018-01-21 10:59] LABS: Hematocrit 38.8 % (37.0-47.0); Hemoglobin 12.7 gm/dL (12.5-16.0); Mean Cell Volume 84.3 fl (78-100); Mean Corpuscular Hemoglobin 27.6 pg (27-31); Mean Corpuscular Hgb Conc 32.7 g/dl (32-36); Mean Platelet Volume 9.1 fl (8-12.5); Neutrophil % 80.9 % (42-75.0); Platelet Count 386 K/mm3 (150-450); Red Cell Distribution Width 13.3 % (11.5-14.0); White Blood Count 17.3 K/mm3 (4.0-10.5)
[2018-01-21 11:07] LABS: Anion Gap 8.2 mmol/L (6.8-13.8); BUN/Creatinine Ratio 9.3 (9.0-21.6); Calcium * 8.4 mg/dL (7.9-10.9); Carbon Dioxide 30.1 mmol/L (24-32.6); Estimated Creat Clear 55.1; Potassium 3.3 mmol/L (3.4-4.6)
--- NOTE | 2018-01-21 13:30 | PN ---
Subjective - Date and Time Seen Date: 01/21/18 Time: 13:25 Subjective Narrative: Patient is wanting to eat . Her WBC is is up to 17 from 13 but still down from 21 on admission. She has been afebrile. Objective - Review of Systems Generalized/Overall Review: Denies: Chills, Fever Respiratory: Denies: Cough, Shortness of Breath Cardiac: Denies: Chest Pain, Edema Abdominal: Reports: Nausea - but says ffrom morphine, Abdominal Pain - none at this time due to morphine. Denies: Vomiting Genitourinary Symptoms: Denies: Urgency, Frequency Musculoskeletal Complaints: Denies: Joint Pain - Vitals Vitals: Last Vital Signs Temp 37.1 C 01/21/18 10:27 Pulse 86 01/21/18 10:27 Resp 14 01/21/18 10:27 BP 141/69 01/21/18 10:27 Pulse Ox 95 01/21/18 10:27 - Abnormal Lab Findings Abnormal Lab Findings: Abnormal Lab Results 01/21/18 01/21/18 Range/Units 10:53 10:53 WBC 17.3 H D (4.0-10.5) K/mm3 Immature Gran % (Auto) 1.20 H (0.001-0.429) % Immature Gran # (Auto) 0.20 H (0.000-0.0310) K/mm3 Neutrophils % 80.9 H (42-75.0) % Lymphocytes % 8.1 L (20-51) % Neutrophils # 14.0 H (1.3-6.0) K/mm3 Lymphocytes # 1.40 L (1.5-3.5) k/mm3 Monocytes # 1.4 H (0.0-1.0) k/mm3 Potassium 3.3 L (3.4-4.6) mmol/L - Exam Constitutional: Present: Alert, Oriented x3, Cooperative ENT Exam: Present: hearing grossly normal Neck: Present: supple Respiratory: Present: decreased breath sounds, No rales, No wheezing Cardiovascular/Chest: Present: regular rate, rhythm, no JVD, no murmur Abdomen: Present: soft, tender - slightly, distended - slightly, hypoactive Extremity: Present: no calf tenderness, pedal edema Assessment/Plan - Problems/Diagnosis (1) Diverticulitis Problem: Acute Qualifiers: Diverticulitis site: large intestine Diverticulitis bleeding: without bleeding Diverticulitis complication: with perforation and abscess Qualified Code(s): K57.20 - Diverticulitis of large intestine with perforation and abscess without bleeding Narrative: with microperforation . on IV merepenem (2) Colonic diverticular abscess Problem: Acute Narrative: continue with IV antibiotics. if not improving , will likely undergo explor lap with resection . (3) UTI (urinary tract infection) Problem: Acute Narrative: Gram Negative bacilli on GS. continue with IV antibiotics,. (4) HTN (hypertension) Problem: Acute (5) GERD (gastroesophageal reflux disease) Problem: Acute (6) Hyperlipemia Problem: Acute
[2018-01-21] MEDS: ENOXAPARIN SODIUM 40 MG/0.4 ML SYRG SC SCH (13:44)
[2018-01-21] MEDS: METOPROLOL TARTRATE 25 MG TABLET PO SCH (20:34)
[2018-01-22] MEDS: MEROPENEM 1 GM in NORMAL SALINE 100 ML IV SCH ×2 (02:24→14:07)
[2018-01-22] MEDS: METOPROLOL TARTRATE 50 MG TABLET PO SCH (08:07)
[2018-01-22] MEDS: SACCHAROMYCES BOULARDII 250 MG CAPSULE PO SCH ×2 (08:07→20:33)
[2018-01-22 08:28] LABS: Hematocrit 43.6 % (37.0-47.0); Hemoglobin 14.3 gm/dL (12.5-16.0); Mean Cell Volume 83.7 fl (78-100); Mean Corpuscular Hemoglobin 27.4 pg (27-31); Mean Corpuscular Hgb Conc 32.8 g/dl (32-36); Mean Platelet Volume 8.9 fl (8-12.5); Platelet Count 436 K/mm3 (150-450); Red Blood Count 5.21 M/mm3 (4.2-5.4); Red Cell Distribution Width 13.4 % (11.5-14.0); White Blood Count 19.2 K/mm3 (4.0-10.5)
[2018-01-22 08:29] LABS: Total Cells Counted 100
[2018-01-22 08:32] LABS: Anion Gap 10.8 mmol/L (6.8-13.8); BUN/Creatinine Ratio 10.6 (9.0-21.6); Carbon Dioxide 28.6 mmol/L (24-32.6); Estimated Creat Clear 62.6; Potassium 3.4 mmol/L (3.4-4.6)
[2018-01-22 08:36] LABS: Atypical (Reactive) Lymph 1 % (0-2); Band 4 % (0-2.0); Dohle Bodies 1+; Eosinophil 1 % (0-3); Lymphocyte 15 % (20-51); Monocyte 9 % (0-9); Neutrophil 70 % (42-75); Neutrophil # 13.4 K/mm3 (1.3-6.0); Platelet Estimate Normal (NORMAL); Toxic Granulation 1+
--- NOTE | 2018-01-22 08:58 | PN ---
Dictated Progress Note - Date and Time Seen: Date: 01/21/18 Time: 14:30 - Progress Note Narrative: Vital Signs - Last Taken Temp 36.8 C 01/21/18 14:00 Pulse 94 01/21/18 14:00 Resp 18 01/21/18 14:00 BP 134/70 01/21/18 14:00 Pulse Ox 96 01/21/18 14:00 Abnormal/Pending Laboratory Last 24 HRS 01/21/18 01/21/18 10:53 10:53 WBC 17.3 H D Immature Gran % (Auto) 1.20 H Immature Gran # (Auto) 0.20 H Neutrophils % 80.9 H Band Neuts % (Manual) Lymphocytes % 8.1 L Lymphocytes % (Manual) Neutrophils # 14.0 H Neutrophils # (Manual) Lymphocytes # 1.40 L Monocytes # 1.4 H Monocytes # (Manual) Potassium 3.3 L Culture 01/19/18 10:00 Urine Culture - Final Urine,Voided Escherichia Coli 01/19/18 14:07 Blood Culture - Preliminary Blood NO GROWTH AFTER 48 HOURS 01/19/18 10:16 Blood Culture - Preliminary Blood NO GROWTH AFTER 48 HOURS She has remained afebrile and tachycardia as resolved. 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
[2018-01-22] MEDS: DEXTROSE 5%-0.5 NORMAL SALINE 1,000 ML IV PRN ×2 (10:02→23:01)
[2018-01-22] MEDS ORDERED: CIPROFLOXACIN IN 5 % DEXTROSE 400 MG/200 ML BAG IV SCH (11:00)
--- NOTE | 2018-01-22 13:12 | PN ---
Objective - Review of Systems Generalized/Overall Review: Reports: Weakness. Denies: Chills, Fever Respiratory: Denies: Cough, Shortness of Breath Cardiac: Denies: Chest Pain, Palpitations Abdominal: Denies: Nausea, Vomiting Genitourinary Symptoms: Denies: Urgency, Frequency - Vitals Vitals: Last Vital Signs Temp 36.6 C 01/22/18 10:53 Pulse 79 01/22/18 10:53 Resp 18 01/22/18 10:53 BP 148/82 01/22/18 10:53 Pulse Ox 96 01/22/18 10:53 - Abnormal Lab Findings Abnormal Lab Findings: Abnormal Lab Results 01/22/18 Range/Units 08:22 WBC 19.2 H (4.0-10.5) K/mm3 Band Neuts % (Manual) 4 H (0-2.0) % Lymphocytes % (Manual) 15 L (20-51) % Neutrophils # (Manual) 13.4 H (1.3-6.0) K/mm3 Monocytes # (Manual) 1.7 H (0.0-1.0) k/mm3 - Exam Constitutional: Present: Alert, Oriented x3, Cooperative ENT Exam: Present: hearing grossly normal Neck: Present: supple Respiratory: Present: decreased breath sounds, No rales, No wheezing Cardiovascular/Chest: Present: regular rate, rhythm, no JVD, no murmur Abdomen: Present: soft, no rebound tenderness, tender - LLQ, distended - slightly, hypoactive Extremity: Present: no pedal edema, no calf tenderness Assessment/Plan - Problems/Diagnosis (1) Diverticulitis Problem: Acute Qualifiers: Diverticulitis site: large intestine Diverticulitis bleeding: without bleeding Diverticulitis complication: with perforation and abscess Qualified Code(s): K57.20 - Diverticulitis of large intestine with perforation and abscess without bleeding Narrative: WBC continues to go up. will d/c meropenem ad restart her on IV Cipro/Flagyl. on reviewing her UTI- she is growing E.Coli and it is R to Cipro. Will do IV rocephin and d/c Cipro and continue with Flagyl. Discussed with pharmacy- Cephalopsporin less cross reactivity with PCN than Zosyn which is piperacillin ( PCN) (2) Colonic diverticular abscess Problem: Acute Narrative: possible explor lap with colostomy or maria esther to end anastomosis with ileostomy per Dr. Ghosh if w/o further improvemet. will follow CTS of abdomen and results. (3) UTI (urinary tract infection) Problem: Acute Narrative: E.Coli - Resistant to Cipro. Sensitive to meropenem, Zosyn, Rocephin ... (4) HTN (hypertension) Problem: Acute (5) GERD (gastroesophageal reflux disease) Problem: Acute (6) Hyperlipemia Problem: Acute
[2018-01-22] MEDS: metroNIDAZOLE/SODIUM CHLORIDE 500 MG/100 ML BAG IV SCH ×2 (13:27→18:47)
[2018-01-22] MEDS: ENOXAPARIN SODIUM 40 MG/0.4 ML SYRG SC SCH (13:44)
[2018-01-22] MEDS: METOPROLOL TARTRATE 25 MG TABLET PO SCH (20:33)
[2018-01-23] MEDS: metroNIDAZOLE/SODIUM CHLORIDE 500 MG/100 ML BAG IV SCH ×3 (02:41→17:22)
[2018-01-23 05:54] LABS: Hematocrit 40.3 % (37.0-47.0); Hemoglobin 13.1 gm/dL (12.5-16.0); Mean Cell Volume 83.4 fl (78-100); Mean Corpuscular Hemoglobin 27.1 pg (27-31); Mean Corpuscular Hgb Conc 32.5 g/dl (32-36); Mean Platelet Volume 9.4 fl (8-12.5); Neutrophil # 11.2 K/mm3 (1.3-6.0); Neutrophil % 75.6 % (42-75.0); Platelet Count 406 K/mm3 (150-450); Red Blood Count 4.83 M/mm3 (4.2-5.4); Red Cell Distribution Width 13.4 % (11.5-14.0); White Blood Count 14.8 K/mm3 (4.0-10.5)
[2018-01-23 06:10] LABS: BUN/Creatinine Ratio 12.1 (9.0-21.6); Calcium * 8.5 mg/dL (7.9-10.9); Estimated Creat Clear 71.3
[2018-01-23] MEDS: MORPHINE SULFATE 2 MG/ML DISP.SYRIN IV PRN (07:29)
[2018-01-23] MEDS: METOPROLOL TARTRATE 50 MG TABLET PO SCH (08:08)
[2018-01-23] MEDS: SACCHAROMYCES BOULARDII 250 MG CAPSULE PO SCH ×2 (08:08→20:53)
[2018-01-23] MEDS: DEXTROSE 5%-0.5 NORMAL SALINE 1,000 ML IV PRN (09:34)
--- NOTE | 2018-01-23 10:12 | PN ---
Subjective - Date and Time Seen Date: 01/23/18 Time: 10:06 Subjective Narrative: Patient afebrile. Tmax 37.2. WBC is down to 14 from 19. Objective - Review of Systems Generalized/Overall Review: Denies: Chills, Fever Respiratory: Reports: Cough. Denies: Shortness of Breath Cardiac: Denies: Chest Pain, Edema, Palpitations Abdominal: Denies: Nausea, Vomiting, Abdominal Pain Genitourinary Symptoms: Denies: Urgency, Frequency - Vitals Vitals: Last Vital Signs Temp 37.1 C 01/23/18 07:14 Pulse 80 01/23/18 08:49 Resp 18 01/23/18 07:14 BP 148/76 01/23/18 08:08 Pulse Ox 96 01/23/18 07:14 - Abnormal Lab Findings Abnormal Lab Findings: Abnormal Lab Results 01/23/18 01/23/18 Range/Units 05:30 05:30 WBC 14.8 H D (4.0-10.5) K/mm3 Immature Gran % (Auto) 1.20 H (0.001-0.429) % Immature Gran # (Auto) 0.18 H (0.000-0.0310) K/mm3 Neutrophils % 75.6 H (42-75.0) % Lymphocytes % 13.5 L (20-51) % Neutrophils # 11.2 H (1.3-6.0) K/mm3 Monocytes # 1.1 H (0.0-1.0) k/mm3 Potassium 3.0 L (3.4-4.6) mmol/L Random Glucose 114 H (70-110) mg/dL - Exam Constitutional: Present: Alert, Oriented x3, Cooperative ENT Exam: Present: hearing grossly normal Neck: Present: supple Respiratory: Present: normal breath sounds, No rales, No wheezing Cardiovascular/Chest: Present: regular rate, rhythm, no JVD, no murmur Abdomen: Present: tender - LLQ, guarding - LLQ, distended - slightly, hypoactive. Absent: no rebound tenderness Extremity: Present: no pedal edema, no calf tenderness Assessment/Plan - Problems/Diagnosis (1) Diverticulitis Problem: Acute Qualifiers: Diverticulitis site: large intestine Diverticulitis bleeding: without bleeding Diverticulitis complication: with perforation and abscess Qualified Code(s): K57.20 - Diverticulitis of large intestine with perforation and abscess without bleeding Narrative: Day # 5 of IV antibiotics. WBC is trending down. (2) Colonic diverticular abscess Problem: Acute Narrative: waiting surgery 's decison if to continue with conservative tx vs surgical. (3) UTI (urinary tract infection) Problem: Acute Narrative: E. Coli . continue with IV antibiotics. (4) HTN (hypertension) Problem: Acute (5) GERD (gastroesophageal reflux disease) Problem: Acute (6) Hyperlipemia Problem: Acute
[2018-01-23] MEDS: POTASSIUM CHLORIDE 40 MEQ in NORMAL SALINE 1,000 ML IV SCH ×2 (10:48→22:30)
[2018-01-23] MEDS: ENOXAPARIN SODIUM 40 MG/0.4 ML SYRG SC SCH (10:51)
[2018-01-23] MEDS: METOPROLOL TARTRATE 25 MG TABLET PO SCH (20:53)
[2018-01-24] MEDS: MORPHINE SULFATE 2 MG/ML DISP.SYRIN IV PRN (01:58)
[2018-01-24] MEDS: metroNIDAZOLE/SODIUM CHLORIDE 500 MG/100 ML BAG IV SCH ×3 (02:00→20:27)
[2018-01-24 07:45] LABS: Hematocrit 40.5 % (37.0-47.0); Hemoglobin 12.9 gm/dL (12.5-16.0); Mean Cell Volume 84.2 fl (78-100); Mean Corpuscular Hemoglobin 26.8 pg (27-31); Mean Corpuscular Hgb Conc 31.9 g/dl (32-36); Mean Platelet Volume 9.2 fl (8-12.5); Neutrophil # 10.8 K/mm3 (1.3-6.0); Platelet Count 425 K/mm3 (150-450); Red Blood Count 4.81 M/mm3 (4.2-5.4); Red Cell Distribution Width 13.5 % (11.5-14.0)
--- NOTE | 2018-01-24 08:19 | PN ---
Progess Note - Interim Date: 01/24/18 Time: 08:18 Narrative: 01/24/18 08:18 Patient is clinically feeling better. WBC is at 15. positive mild tenderness, no rebound tenderness. Will talk to surgery.
[2018-01-24] MEDS: SACCHAROMYCES BOULARDII 250 MG CAPSULE PO SCH ×2 (08:28→20:29)
[2018-01-24] MEDS: METOPROLOL TARTRATE 50 MG TABLET PO SCH (08:28)
[2018-01-24 08:33] LABS: Anion Gap 13.9 mmol/L (6.8-13.8); BUN/Creatinine Ratio 15.8 (9.0-21.6); Calcium * 8.5 mg/dL (7.9-10.9); Carbon Dioxide 25.2 mmol/L (24-32.6); Estimated Creat Clear 72.5; Potassium 4.1 mmol/L (3.4-4.6)
[2018-01-24] MEDS: POTASSIUM CHLORIDE 40 MEQ in NORMAL SALINE 1,000 ML IV SCH ×2 (09:46→22:03)
[2018-01-24] MEDS: ENOXAPARIN SODIUM 40 MG/0.4 ML SYRG SC SCH (10:53)
[2018-01-24] MEDS: PIPERACILLIN SODIUM/TAZOBACTAM 3.375 GM in DEXTROSE 5 % IN WATER 100 ML IV SCH ×4 (15:06→22:28)
--- NOTE | 2018-01-24 17:43 | PN ---
Subjective - Date and Time Seen Date: 01/24/18 Time: 17:38 Subjective Narrative: Patient is clinically feeling better. WBC is at 15. positive mild tenderness, no rebound tenderness. Will talk to surgery. Objective - Review of Systems Generalized/Overall Review: Denies: Chills, Fever Respiratory: Denies: Cough, Shortness of Breath Cardiac: Denies: Chest Pain, Edema, Palpitations Abdominal: Reports: Abdominal Pain - mild with palpation. Denies: Nausea, Vomiting - Vitals Vitals: Last Vital Signs Temp 36.6 C 01/24/18 17:01 Pulse 86 01/24/18 17:01 Resp 18 01/24/18 17:01 BP 155/78 H 01/24/18 17:01 Pulse Ox 94 01/24/18 17:01 - Abnormal Lab Findings Abnormal Lab Findings: Abnormal Lab Results 01/24/18 01/24/18 Range/Units 07:30 07:30 WBC 15.0 H (4.0-10.5) K/mm3 MCH 26.8 L (27-31) pg MCHC 31.9 L (32-36) g/dl Immature Gran % (Auto) 1.10 H (0.001-0.429) % Immature Gran # (Auto) 0.16 H (0.000-0.0310) K/mm3 Lymphocytes % 16.7 L (20-51) % Neutrophils # 10.8 H (1.3-6.0) K/mm3 Anion Gap 13.9 H (6.8-13.8) mmol/L - Exam Constitutional: Present: Alert, Oriented x3, Cooperative ENT Exam: Present: hearing grossly normal Neck: Present: supple Respiratory: Present: normal breath sounds, No rales, No wheezing Cardiovascular/Chest: Present: regular rate, rhythm, no JVD, no murmur Abdomen: Present: soft, tender - slightly, distended - slightly, hypoactive. 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 will recheck WBC in am. (2) Colonic diverticular abscess Problem: Acute Narrative: discussed with surgery. patient wants to go ahead with surgery . they will likely do a resection with a colostomy. (3) UTI (urinary tract infection) Problem: Acute Narrative: E.coli. (4) HTN (hypertension) Problem: Acute (5) GERD (gastroesophageal reflux disease) Problem: Acute (6) Hyperlipemia Problem: Acute
[2018-01-24] MEDS: METOPROLOL TARTRATE 25 MG TABLET PO SCH (20:30)
[2018-01-25] MEDS: ONDANSETRON HCL/PF 2 MG/ML VIAL IV PRN ×2 (00:39→21:06)
[2018-01-25] MEDS: metroNIDAZOLE/SODIUM CHLORIDE 500 MG/100 ML BAG IV SCH ×3 (02:46→18:36)
[2018-01-25 05:44] LABS: Hematocrit 38.3 % (37.0-47.0); Hemoglobin 12.5 gm/dL (12.5-16.0); Mean Cell Volume 83.8 fl (78-100); Mean Corpuscular Hemoglobin 27.4 pg (27-31); Mean Corpuscular Hgb Conc 32.6 g/dl (32-36); Mean Platelet Volume 9.3 fl (8-12.5); Neutrophil % 74.3 % (42-75.0); Platelet Count 404 K/mm3 (150-450); Red Blood Count 4.57 M/mm3 (4.2-5.4); Red Cell Distribution Width 13.5 % (11.5-14.0); White Blood Count 14.7 K/mm3 (4.0-10.5)
[2018-01-25] MEDS: PIPERACILLIN SODIUM/TAZOBACTAM 3.375 GM in DEXTROSE 5 % IN WATER 100 ML IV SCH ×6 (06:00→21:42)
--- NOTE | 2018-01-25 08:47 | PN ---
Subjective - Date and Time Seen Date: 01/25/18 Time: 08:40 Subjective Narrative: Patient on Zosyn. WBC 14.8. Denies itchiiness, SOB, wheezing, was nauseous last night. started on clear liquid Objective - Review of Systems Generalized/Overall Review: Denies: Chills, Fever Respiratory: Reports: Cough. Denies: Shortness of Breath, Wheezing Cardiac: Denies: Chest Pain, Edema, Palpitations Abdominal: Reports: Nausea. Denies: Vomiting Genitourinary Symptoms: Denies: Urgency, Frequency - Vitals Vitals: Last Vital Signs Temp 37.3 C 01/25/18 07:03 Pulse 74 01/25/18 07:03 Resp 14 01/25/18 07:03 BP 138/68 01/25/18 07:03 Pulse Ox 98 01/25/18 07:03 - Abnormal Lab Findings Abnormal Lab Findings: Abnormal Lab Results 01/25/18 Range/Units 05:36 WBC 14.7 H (4.0-10.5) K/mm3 Immature Gran % (Auto) 1.30 H (0.001-0.429) % Immature Gran # (Auto) 0.19 H (0.000-0.0310) K/mm3 Lymphocytes % 14.2 L (20-51) % Neutrophils # 11.0 H (1.3-6.0) K/mm3 Monocytes # 1.1 H (0.0-1.0) k/mm3 - Exam Constitutional: Present: Alert, Oriented x3, Acute distress ENT Exam: Present: hearing grossly normal Neck: Present: supple Respiratory: Present: decreased breath sounds, No rales, No wheezing Cardiovascular/Chest: Present: regular rate, rhythm, no JVD, no murmur Abdomen: Present: nontender, no rebound tenderness, firm, hypoactive Extremity: Present: no pedal edema, no calf tenderness Assessment/Plan - Problems/Diagnosis (1) Diverticulitis Problem: Acute Qualifiers: Diverticulitis site: large intestine Diverticulitis bleeding: without bleeding Diverticulitis complication: with perforation and abscess Qualified Code(s): K57.20 - Diverticulitis of large intestine with perforation and abscess without bleeding Narrative: on IV zosyn- patient was told that if ever she starts getting the same s/sx of itchiness, swelling of throat and difficulty of breathing when she was 21 years old to tell the nurses. (2) Colonic diverticular abscess Problem: Acute Narrative: possible resectionb with colostomy if not responding or improving with conservative treatment (3) UTI (urinary tract infection) Problem: Acute (4) HTN (hypertension) Problem: Acute (5) GERD (gastroesophageal reflux disease) Problem: Acute (6) Hyperlipemia Problem: Acute
[2018-01-25] MEDS: METOPROLOL TARTRATE 50 MG TABLET PO SCH (09:09)
[2018-01-25] MEDS: SACCHAROMYCES BOULARDII 250 MG CAPSULE PO SCH ×2 (09:13→20:43)
[2018-01-25] MEDS: POTASSIUM CHLORIDE 40 MEQ in NORMAL SALINE 1,000 ML IV SCH ×2 (09:14→20:45)
[2018-01-25] MEDS: ENOXAPARIN SODIUM 40 MG/0.4 ML SYRG SC SCH (13:13)
[2018-01-25] MEDS: METOPROLOL TARTRATE 25 MG TABLET PO SCH (20:43)
[2018-01-25] MEDS: MORPHINE SULFATE 2 MG/ML DISP.SYRIN IV PRN (21:38)
[2018-01-25] MEDS ORDERED: MORPHINE SULFATE 2 MG/ML DISP.SYRIN IV ONE (23:57)
[2018-01-26] MEDS: metroNIDAZOLE/SODIUM CHLORIDE 500 MG/100 ML BAG IV SCH ×3 (01:57→19:20)
[2018-01-26 05:15] LABS: Hemoglobin 13.1 gm/dL (12.5-16.0); Mean Corpuscular Hemoglobin 27.5 pg (27-31); Mean Corpuscular Hgb Conc 32.8 g/dl (32-36); Neutrophil # 11.5 K/mm3 (1.3-6.0); Neutrophil % 76.4 % (42-75.0); Platelet Count 390 K/mm3 (150-450); Red Blood Count 4.76 M/mm3 (4.2-5.4); Red Cell Distribution Width 13.6 % (11.5-14.0)
[2018-01-26] MEDS: POTASSIUM CHLORIDE 40 MEQ in NORMAL SALINE 1,000 ML IV SCH ×3 (06:20→10:13)
[2018-01-26] MEDS: PIPERACILLIN SODIUM/TAZOBACTAM 3.375 GM in DEXTROSE 5 % IN WATER 100 ML IV SCH ×6 (06:20→21:44)
[2018-01-26] MEDS: METOPROLOL TARTRATE 50 MG TABLET PO SCH (08:21)
[2018-01-26] MEDS: SACCHAROMYCES BOULARDII 250 MG CAPSULE PO SCH ×2 (08:21→21:25)
--- NOTE | 2018-01-26 08:53 | PN ---
Phil Note - Interim Date: 01/26/18 Time: 08:51 Narrative: 01/26/18 08:51 Patient is complaining of abdominal pain. Afebrile. Tmax 37.4. WBC is 15 . Day # 7 of IV antibiotics. On clear liquids. She is frustrated . Will talk to Surgery. 01/26/18 14:12
[2018-01-26] MEDS ORDERED: BISACODYL 10 MG SUPP.RECT RC ONE (09:30)
[2018-01-26] MEDS: POLYETHYLENE GLYCOL 3350 119 GM BTL PO SCH (09:30)
[2018-01-26] MEDS: ENOXAPARIN SODIUM 40 MG/0.4 ML SYRG SC SCH (11:58)
[2018-01-26 14:35] LABS: Anion Gap 12.8 mmol/L (6.8-13.8); BUN/Creatinine Ratio 10.7 (9.0-21.6); Calcium * 8.3 mg/dL (7.9-10.9); Carbon Dioxide 25.3 mmol/L (24-32.6); Estimated Creat Clear 73.8; Potassium 4.1 mmol/L (3.4-4.6)
--- NOTE | 2018-01-26 16:04 | PN ---
Subjective - Date and Time Seen Date: 01/26/18 Time: 16:00 Subjective Narrative: Patient is complaining of abdominal pain. Afebrile. Tmax 37.4. WBC is 15 . Day # 7 of IV antibiotics. On clear liquids. Objective - Review of Systems Generalized/Overall Review: Reports: Weakness. Denies: Chills, Fever Respiratory: Reports: Cough. Denies: Shortness of Breath, Wheezing Cardiac: Denies: Chest Pain, Edema, Palpitations Abdominal: Reports: Nausea, Abdominal Pain. Denies: Vomiting Genitourinary Symptoms: Denies: Urgency, Frequency - Vitals Vitals: Last Vital Signs Temp 36.7 C 01/26/18 15:00 Pulse 83 01/26/18 15:00 Resp 20 01/26/18 15:00 BP 155/65 H 01/26/18 15:00 Pulse Ox 95 01/26/18 15:00 - Abnormal Lab Findings Abnormal Lab Findings: Abnormal Lab Results 01/26/18 Range/Units 05:13 WBC 15.0 H (4.0-10.5) K/mm3 Immature Gran % (Auto) 1.10 H (0.001-0.429) % Immature Gran # (Auto) 0.16 H (0.000-0.0310) K/mm3 Neutrophils % 76.4 H (42-75.0) % Lymphocytes % 12.9 L (20-51) % Neutrophils # 11.5 H (1.3-6.0) K/mm3 - Exam Constitutional: Present: Alert, Oriented x3, Cooperative ENT Exam: Present: hearing grossly normal Neck: Present: supple Respiratory: Present: decreased breath sounds, No rales, No wheezing Cardiovascular/Chest: Present: regular rate, rhythm, no JVD, no murmur Abdomen: Present: tender - slightly, other - tympanitic, distended - slightly, hypoactive. Absent: rebound tenderness Extremity: Present: no pedal edema, no calf tenderness Assessment/Plan - Problems/Diagnosis (1) Diverticulitis Problem: Acute Qualifiers: Diverticulitis site: large intestine Diverticulitis bleeding: without bleeding Diverticulitis complication: with perforation and abscess Qualified Code(s): K57.20 - Diverticulitis of large intestine with perforation and abscess without bleeding Narrative: continue with IV antibiotics. (2) Colonic diverticular abscess Problem: Acute Narrative: continue with IV antibiotics. (3) UTI (urinary tract infection) Problem: Acute Narrative: will do a follow UA (4) HTN (hypertension) Problem: Acute (5) GERD (gastroesophageal reflux disease) Problem: Acute (6) Hyperlipemia Problem: Acute
[2018-01-26] MEDS ORDERED: MAG HYDROX/ALUMINUM HYD/SIMETH 30 ML UDC PO ONE (16:30)
[2018-01-26] MEDS: METOPROLOL TARTRATE 25 MG TABLET PO SCH (21:25)
[2018-01-26] MEDS: MORPHINE SULFATE 2 MG/ML DISP.SYRIN IV PRN (21:45)
[2018-01-27] MEDS: metroNIDAZOLE/SODIUM CHLORIDE 500 MG/100 ML BAG IV SCH ×2 (01:55→09:22)
[2018-01-27 05:29] LABS: Hematocrit 41.2 % (37.0-47.0); Hemoglobin 13.5 gm/dL (12.5-16.0); Mean Cell Volume 83.7 fl (78-100); Mean Corpuscular Hemoglobin 27.4 pg (27-31); Mean Corpuscular Hgb Conc 32.8 g/dl (32-36); Mean Platelet Volume 9.3 fl (8-12.5); Neutrophil # 12.2 K/mm3 (1.3-6.0); Neutrophil % 75.9 % (42-75.0); Platelet Count 435 K/mm3 (150-450); Red Blood Count 4.92 M/mm3 (4.2-5.4); Red Cell Distribution Width 13.7 % (11.5-14.0); White Blood Count 16.1 K/mm3 (4.0-10.5)
[2018-01-27] MEDS: ONDANSETRON HCL/PF 2 MG/ML VIAL IV PRN (07:12)
[2018-01-27] MEDS: PIPERACILLIN SODIUM/TAZOBACTAM 3.375 GM in DEXTROSE 5 % IN WATER 100 ML IV SCH ×2 (07:13)
[2018-01-27] MEDS: METOPROLOL TARTRATE 50 MG TABLET PO SCH (08:10)
[2018-01-27] MEDS: SACCHAROMYCES BOULARDII 250 MG CAPSULE PO SCH (08:10)
[2018-01-27] MEDS: POLYETHYLENE GLYCOL 3350 119 GM BTL PO SCH (08:10)
[2018-01-27] MEDS ORDERED: HYDROmorphone HCL 1 MG/ML DISP.SYRIN IV PRN (08:28)
[2018-01-27] MEDS ORDERED: KETOROLAC TROMETHAMINE 15 MG/ML VIAL IV PRN (09:07)
--- NOTE | 2018-01-27 09:13 | DS ---
Transfer Discharge Summary - Diagnosis(s)/Problems (1) Diverticulitis Problem: Acute (2) Colonic diverticular abscess Problem: Acute (3) UTI (urinary tract infection) Problem: Acute (4) HTN (hypertension) Problem: Acute (5) GERD (gastroesophageal reflux disease) Problem: Acute (6) Hyperlipemia Problem: Acute - Course Description of Stay: Zuleyka Koenig, is a 77 years old white female, patient of Dr. Hunt, past medical history of hypertension, diverticulitis, coronary artery disease, gastroesophageal reflux disease, hyperlipidemia, who was admitted on 01/19/2018 because of left lower quadrant abdominal pain. The patient has not been feeling well since 2 months ago. She said she had been having left lower quadrant pain, dull, nonradiating, associated with nausea, relieved with bowel movement, increased with eating. She did not notice any fever or chills. Last November she was treated with Cipro and Flagyl by the walk-in clinic for diverticulitis. She went to our emergency room today where a CT scan of her abdomen and pelvis showed -"Abnormal findings of the descending and sigmoid colonic segment suggestive of diverticulitis versus colitis or even a potential mass complicated by inflammation/infection. There is interval development of adjacent extra luminal gas, and potential horseshoe-shaped fluid collection adjacent to the sigmoid colon/within the sigmoid colonic wall which could represent contained perforation and abscess formation." Her white blood cell count was elevated in the 20,000 range. She was then admitted for IV antibiotics. Interventional radiology felt that it was too dangerous to do drainage because of a small window. Surgery was consulted and he recommended continuing with IV antibiotics and conservative management. Her WBC has not improve significantly with 7 days [place] [id number] today) and she continues to have on and off abdominal pain. Surgery recommended her to be transferred. Procedures Performed: none - Results and Findings Results and Findings: Laboratory Results - last 24 hr 01/26/18 01/27/18 14:10 05:22 WBC 16.1 H RBC 4.92 Hgb 13.5 Hct 41.2 MCV 83.7 MCH 27.4 MCHC 32.8 RDW 13.7 Plt Count 435 MPV 9.3 Immature Gran % (Auto) 1.10 H Immature Gran # (Auto) 0.17 H Neutrophils % 75.9 H Lymphocytes % 14.6 L Monocytes % 6.0 Eosinophils % 1.6 Basophils % 0.8 Nucleated RBC % 0.0 Neutrophils # 12.2 H Lymphocytes # 2.35 Monocytes # 1.0 Eosinophils # 0.3 Absolute Basophils 0.1 Sodium 139 Plasma Sodium 139 Potassium 4.1 Chloride 105 Carbon Dioxide 25.3 Anion Gap 12.8 BUN 6 Creatinine 0.56 Est GFR (Non-Af Amer) 112 BUN/Creatinine Ratio 10.7 Random Glucose 80 Calcium 8.3 - Medications Medications: Active Medications Enoxaparin Sodium (Lovenox) 40 mg SC Q24H [facility] Stop: 02/19/18 11:46 Last Admin: 01/26/18 11:58 Dose: 40 mg Metronidazole (Flagyl) 500 mg in 100 mls @ 100 mls/hr IV Q8H [facility]; Protocol Stop: 02/21/18 10:16 Last Admin: 01/27/18 01:55 Dose: 100 mls/hr Piperacillin Sod/Tazobactam (Sod 3.375 gm/ Dextrose/Water) 100 mls @ 25 mls/hr IV Q8H [facility]; Protocol Stop: 02/23/18 14:16 Last Admin: 01/27/18 07:13 Dose: 25 mls/hr Metoprolol Tartrate (Lopressor) 50 mg PO DAILY [facility] Stop: 02/19/18 09:01 Last Admin: 01/27/18 08:10 Dose: 50 mg Metoprolol Tartrate (Lopressor) 25 mg PO HS [facility] Stop: 02/19/18 21:01 Last Admin: 01/26/18 21:25 Dose: 25 mg Ondansetron HCl (Zofran) 4 mg IV Q6H PRN PRN Reason: Nausea And Vomiting Stop: 02/24/18 00:30 Last Admin: 01/27/18 07:12 Dose: 4 mg Polyethylene Glycol (Miralax) 17 gm PO DAILY [facility] Stop: 02/25/18 09:31 Last Admin: 01/27/18 08:10 Dose: 17 gm Saccharomyces Boulardii (Florastor) 250 mg PO BID [facility] Stop: 02/19/18 21:01 Last Admin: 01/27/18 08:10 Dose: 250 mg Discontinued Medications Al Hydrox/Mg Hydrox/Simethicone (Maalox Plus Suspension) 5 ml PO ONCE ONE Stop: 01/26/18 16:31 Last Admin: 01/26/18 16:51 Dose: 5 ml Bisacodyl (Dulcolax Suppository) 10 mg RC ONCE ONE Stop: 01/26/18 09:31 Last Admin: 01/26/18 09:31 Dose: 10 mg Diatrizoate Meglum/Diatrizoate Sod (Gastrografin Solution) 60 ml PO ONCE ONE Stop: 01/19/18 10:04 Last Admin: 01/19/18 10:31 Dose: 60 ml Sodium Chloride (Sodium Chloride 0.9%) 1,000 mls @ 200 mls/hr IV .Q5H [facility] Stop: 01/19/18 18:17 Last Admin: 01/19/18 13:50 Dose: 200 mls/hr Metronidazole (Flagyl) 500 mg in 100 mls @ 100 mls/hr IV ONCE [facility]; Protocol Stop: 02/18/18 13:46 Last Infusion: 01/19/18 15:17 Dose: Infused Ciprofloxacin/Dextrose (Cipro) 400 mg in 200 mls @ 200 mls/hr IV ONCE [facility]; Protocol Stop: 02/18/18 13:46 Last Infusion: 01/19/18 16:55 Dose: Infused Dextrose/Sodium Chloride (Dextrose 5%-0.45%Ns) 1,000 mls @ 100 mls/hr IV .Q10H PRN PRN Reason: HYDRATION Stop: 02/18/18 21:18 Last Admin: 01/23/18 09:34 Dose: 100 mls/hr Meropenem 1 gm/ Sodium (Chloride) 100 mls @ 200 mls/hr IV Q8H [facility]; Protocol Stop: 02/19/18 10:01 Last Admin: 01/22/18 14:07 Dose: Not Given Ceftriaxone Sodium 1,000 mg/ (Dextrose/Water) 100 mls @ 200 mls/hr IV Q24H [facility] Stop: 02/21/18 13:31 Last Admin: 01/24/18 14:41 Dose: Not Given Potassium Chloride 40 meq/ (Sodium Chloride) 1,020 mls @ 100 mls/hr IV .[id number] [facility] Stop: 02/22/18 10:16 Last Infusion: 01/26/18 14:43 Dose: 0 mls/hr Metoprolol Tartrate (Lopressor) 25 mg PO DAILY [facility] Stop: 02/18/18 21:20 Last Admin: 01/19/18 21:39 Dose: 25 mg Morphine Sulfate (Morphine Sulfate) 2 mg IV ONCE ONE Stop: 01/19/18 10:45 Last Admin: 01/19/18 11:00 Dose: 2 mg Morphine Sulfate (Morphine Sulfate) 2 mg IV Q6H PRN PRN Reason: Pain Stop: 02/19/18 04:39 Last Admin: 01/26/18 21:45 Dose: 2 mg Morphine Sulfate (Morphine Sulfate) 2 mg IV ONCE ONE Stop: 01/25/18 23:58 Last Admin: 01/26/18 00:01 Dose: 2 mg - Disposition Disposition: Short Term Hospital Inpatient Condition: Fair Discharge Date: 01/27/18 Discharge Time: 10:57
[2018-01-27 11:20] VITALS: BP 136/68
== END 2018-01-27 13:12 | disposition short-term general hospital (02) | DRG 392 ==
LOC: ER 09:10 → MS 14:04
PROVIDERS: ADMIT Internal Medicine; ATTEND Internal Medicine
CPT/HCPCS: 36415; 74019; 74020; 74177; 80048; 80053; 81001; 83690; 84443; 85007; 85025; 87040; 87077; 87086; 87186; 96361; 96365; 96375; 99214; 99285; J2405